=== PATIENT | female | born 1935 | race African-American/Black ===

== ENCOUNTER 2018-02-10 09:34 | Outpatient (CLI) | payer MEDICARE, OTHER | END 2018-02-10 09:35 | disposition home or self-care (01) | LOC: DTY/OP 09:34 | PROVIDERS: ATTEND Family Medicine | DX: E11.9 Type 2 diabetes mellitus without complications (principal) | CPT/HCPCS: 97802 ==

== ENCOUNTER 2018-02-18 11:49 | Outpatient (CLI) | payer MEDICARE, OTHER | END 2018-02-18 11:50 | disposition home or self-care (01) | LOC: BICMAMMO 11:49 | PROVIDERS: ATTEND Family Medicine | DX: Z12.31 Encounter for screening mammogram for malignant neoplasm of breast (principal) | CPT/HCPCS: 77063; 77067 ==

== ENCOUNTER 2018-05-11 09:29 | Emergency (ER) | payer MEDICARE, MEDICAID ==
--- NOTE | 2018-05-11 10:38 | RAD ---
CHEST PA AND LATERAL: HISTORY: Cough. Congestion. Headache. COMPARISON: 03/10/2015 FINDINGS: The heart size is normal. The aorta is tortuous. The lungs are well expanded without focal areas of consolidation, pneumothoraces, or pleural effusions. There are postop changes of a right rotator cu ff repair. Mild degenerative changes are present in the spine. IMPRESSION: No radiographic evidence of acute cardiopulmonary process. POS: OFF
[2018-05-11 11:53] LABS: #Basophils 0.1 thou/uL (0.0-0.2); #Eosinphils 0.1 thou/uL (0.0-0.7); #Lymphocytes 2.1 thou/uL (1.20-3.40); #Monocytes 0.9 thou/uL (0.11-0.59); #Neutrophils 4.2 thou/uL (1.40-6.50); %Basophils 0.9 % (0.0-1.0); %Eosinophils 1.8 % (0.0-10.0); %Lymphocytes 28.7 % (21.0-51.0); %Monocytes 11.7 % (0.0-10.0); %Neutrophils 56.9 % (42.0-75.0); Hemoglobin 13.2 g/dL (12.0-16.0); Mean Corpuscular HGB CONC 30.9 g/dL (32.0-36.0); Mean Corpuscular Hemoglobin 27.6 pg (27.0-31.0); Mean Corpuscular Volume 89.4 fL (78.0-98.0); Mean Platelet Volume 9.7 fL (7.4-10.4); Platelet Count 151 thou/uL (130-400); RBC Distribution Width 13.3 % (11.5-14.5); Red Blood Cell (RBC) Count 4.78 mill/uL (4.20-5.40); White Blood Cell (WBC) Count 7.4 thou/uL (4.8-10.8)
[2018-05-11 12:25] LABS: ALT (SGPT) 15 U/L (8-55); AST (SGOT) 17 U/L (5-34); Alkaline Phosphatase 84 U/L (40-150); Anion Gap 18 mmol/L (10-20); BUN (Urea Nitrogen) 12 mg/dL (9.8-20.1); Bilirubin, Total 0.4 mg/dL (0.2-1.2); Calc. Creatinine Clearance 0 mL/min (70-130); Calcium 9.7 mg/dL (7.8-10.44); Carbon Dioxide 19 mmol/L (23-31); Chloride 106 mmol/L (98-107); Estimated GFR-MDRD 48; Globulin 3.7 g/dL (2.4-3.5); Glucose 144 mg/dL (83-110); Potassium 4.5 mmol/L (3.5-5.1); Protein, Total 7.7 g/dL (6.0-8.3); Sodium 138 mmol/L (136-145)
[2018-05-11] MEDS ORDERED: predniSONE 20 MG TAB ONE (13:11)
== END 2018-05-11 13:28 | disposition home or self-care (01) ==
LOC: ERS 09:29
DX: J20.9 Acute bronchitis, unspecified (principal); E11.9 Type 2 diabetes mellitus without complications; Z79.4 Long term (current) use of insulin; I10 Essential (primary) hypertension; F17.210 Nicotine dependence, cigarettes, uncomplicated; Z79.899 Other long term (current) drug therapy
CPT/HCPCS: 36415; 71046; 80053; 83880; 84484; 85025; 87804; 93005; 94640; J7506; J7620

== ENCOUNTER 2018-05-13 19:59 | Inpatient (IN) | payer MEDICARE, MEDICAID ==
[2018-05-13] MEDS ORDERED: methylPREDNISolone Sod Succ/PF 125 MG/2 ML VIAL ONE (20:36)
--- NOTE | 2018-05-13 20:43 | RAD ---
CHEST ONE VIEW: 05/13/18 COMPARISON: 05/11/18. HISTORY: Cough. FINDINGS: Normal cardiac silhouette. There are diffuse interstitial opacities with areas of patchy alveolar inf iltration in the right perihilar region in the right lung base. No significant pleural fluid. No pneu mothorax or osseous abnormalities. IMPRESSION: Interstitial and alveolar infiltrates. Continued surveillance. POS: [facility]
[2018-05-13 20:46] LABS: #Monocytes 0.3 thou/uL (0.11-0.59); #Neutrophils 7.6 thou/uL (1.40-6.50); %Basophils 0.4 % (0.0-1.0); %Eosinophils 0.1 % (0.0-10.0); %Lymphocytes 11.1 % (21.0-51.0); %Monocytes 3.6 % (0.0-10.0); %Neutrophils 84.8 % (42.0-75.0); Hemoglobin 13.7 g/dL (12.0-16.0); Mean Corpuscular HGB CONC 30.6 g/dL (32.0-36.0); Mean Corpuscular Hemoglobin 27.8 pg (27.0-31.0); Mean Corpuscular Volume 90.7 fL (78.0-98.0); Mean Platelet Volume 10.9 fL (7.4-10.4); Platelet Count 193 thou/uL (130-400); RBC Distribution Width 13.3 % (11.5-14.5); Red Blood Cell (RBC) Count 4.94 mill/uL (4.20-5.40); White Blood Cell (WBC) Count 8.9 thou/uL (4.8-10.8)
[2018-05-13] MEDS ORDERED: cefTRIAXone\\ROCEPHIN 2 GM VIAL ONE (20:51)
[2018-05-13] MEDS ORDERED: Dextrose 5% in Water 1,000 ML IV PRN (23:07)
[2018-05-13] MEDS ORDERED: Dextrose 50% Abboject 50 ML SYRINGE SLOW IVP PRN (23:07)
[2018-05-13] MEDS ORDERED: Azithromycin 500 MG VIAL ONE (23:17)
[2018-05-13] MEDS ORDERED: Ondansetron PF 4 MG/2 ML Vial IVP PRN (23:18)
[2018-05-13] MEDS ORDERED: Calcium Carbonate 500 MG ChewTAB PO PRN (23:18)
[2018-05-13] MEDS ORDERED: Senokot S 8.6-50 MG TAB PO PRN (23:18)
[2018-05-13] MEDS ORDERED: Bisacodyl 5 MG TAB PO PRN (23:18)
[2018-05-13] MEDS ORDERED: Acetaminophen 325 MG TAB PO PRN (23:18)
[2018-05-13] MEDS ORDERED: Ondansetron ODT 4 MG TAB PO PRN (23:18)
[2018-05-13] MEDS ORDERED: Acetaminophen 650 MG Suppository PR PRN (23:18)
[2018-05-13] MEDS ORDERED: traMADol HCl 50 MG TAB PO PRN (23:25)
[2018-05-13 23:35] LABS: BUN (Urea Nitrogen) 24 mg/dL (9.8-20.1)
[2018-05-13 23:37] LABS: ALT (SGPT) 15 U/L (8-55)
[2018-05-13 23:41] VITALS: BMI 36.2
[2018-05-13 23:44] LABS: Albumin 4.1 g/dL (3.4-4.8)
[2018-05-13 23:46] LABS: Calcium 9.9 mg/dL (7.8-10.44); Chloride 100 mmol/L (98-107); Potassium 4.6 mmol/L (3.5-5.1); Sodium 135 mmol/L (136-145)
[2018-05-13 23:47] LABS: Globulin 3.6 g/dL (2.4-3.5); Protein, Total 7.7 g/dL (6.0-8.3)
[2018-05-13 23:48] LABS: Anion Gap 19 mmol/L (10-20); Carbon Dioxide 21 mmol/L (23-31)
[2018-05-13 23:49] LABS: Bilirubin, Total 0.2 mg/dL (0.2-1.2)
[2018-05-13 23:50] LABS: Alkaline Phosphatase 83 U/L (40-150); Calc. Creatinine Clearance 34 mL/min (70-130); Estimated GFR-MDRD 31
[2018-05-13 23:51] LABS: Glucose 630 mg/dL (83-110)
[2018-05-13 23:52] LABS: AST (SGOT) 13 U/L (5-34)
[2018-05-14 00:47] LABS: Lactic Acid 3.1 mmol/L (0.5-2.2)
[2018-05-14] MEDS: HumaLOG 300 UNITS/3 ML VIAL SC PRN ×5 (00:57→20:25)
[2018-05-14] MEDS: Sodium Chloride 0.9% 1,000 ML IV SCH ×2 (01:00→14:00)
--- NOTE | 2018-05-14 06:01 | HP ---
CHIEF COMPLAINT: Shortness of breath. HISTORY OF PRESENT ILLNESS: This is an 82-year-old female with past medical history of type 2 diabetes mellitus, hypertension, presenting to the hospital with shortness of breath. The patient stated that she has been getting worsening shortness of breath and she was recently in the hospital for the same shortness of breath. The patient states that she was diagnosed with bronchitis and was treated and was discharged 4 days ago. However, the patient stated that at home, her shortness of breath has worsened and she has been having dry cough. No sputum production, and the patient states that because she is having severe dry cough, she is having abdominal pain from the coughing episodes. The patient stated that she has a history of some sort of COPD because she has been smoking for a long time. The patient states that she uses inhaler at home. The patient has episodes of worsening shortness of breath. The patient tried using DuoNeb; however, it did not help. The patient endorses subjective fever, headache, one episode of vomiting. The patient denies any chills, chest pain, palpitations, abdominal pain, constipation, diarrhea, hematuria, hematochezia, melena. REVIEW OF SYSTEMS: Positive for fever, shortness of breath, headaches, and abdominal soreness, otherwise as documented in the HPI. All other systems were reviewed and are negative. PAST MEDICAL HISTORY: Type 2 diabetes mellitus, hypertension, asthma. FAMILY HISTORY: Reviewed and noncontributory. PAST SURGICAL HISTORY: The patient had a right rotator cuff repair and big toe nail removed. PSYCHIATRIC HISTORY: No previous psych history. SOCIAL HISTORY: The patient smokes cigarettes daily. She smokes half a pack per day. The patient denies any illicit drug use or alcohol use. ALLERGIES: NO KNOWN DRUG ALLERGIES. CURRENT MEDICATIONS: The patient takes, 1. Amlodipine. 2. Multaq. 3. Amitiza. 4. Metoprolol. 5. Crestor. 6. Losartan. 7. Victoza. 8. Levemir. 9. Aspirin. PHYSICAL EXAMINATION: VITAL SIGNS: The patient's blood pressure is 171/68, pulse of 80, respiratory rate of 17, temperature 98.8, oxygen saturation 96 on room air. GENERAL: The patient is alert and oriented x3, not in acute distress. The patient is sitting in bed. The patient is able to speak to me in full sentences. HEENT: Normocephalic, atraumatic. Pupils are equally round and reactive to light. Extraocular movements are intact. No scleral icterus. No conjunctival pallor. Mucous membranes are moist. NECK: Trachea is midline. Full range of motion. No JVD is appreciated. Supple. LUNGS: Clear to auscultation bilaterally. No wheezing, no rhonchi, no rales appreciated. CARDIAC: Positive S1 and S2. Regular rate and rhythm. No murmurs, no gallops, no rubs appreciated. ABDOMEN: Obese. Abdomen is soft, nontender, and nondistended. Positive bowel sounds. No peritoneal signs. EXTREMITIES: The patient has 5/5 upper extremity strength with good pulses bilaterally and 5/5 lower extremity strength with good pulses bilaterally. No edema noted. NEUROLOGIC: Cranial nerves II through XII grossly intact. No neurologic deficits noted. SKIN: Warm, dry, and intact. IMAGING DATA: Chest x-ray shows interstitial and alveolar infiltrates. LABORATORY DATA: WBC is 8.9, hemoglobin is 13.7, hematocrit is 34.8, platelet count is 193. Chemistry, sodium is 135, potassium is 4.6, chloride is 100, carbon dioxide of 21, anion gap of 19, BUN is 24, creatinine is 1.90, glucose is 630. Lactic acid is 5.4. ASSESSMENT AND PLAN: This is an 82-year-old female, being admitted for, 1. Bilateral interstitial infiltrates, likely due to community-acquired pneumonias. At this point, we have started the patient on azithromycin and Rocephin. We will continue the patient on antibiotics. We will give the patient DuoNeb treatments. The patient is currently not wheezing. Therefore, we are going to hold off steroids at this time, but if the patient starts to wheeze, we will start the patient on steroids. We will continue the patient on gentle hydration and we will give the patient p.r.n. medication for pain and fever. We will follow up on cultures in the a.m. We will also follow up on morning labs. 2. Diabetes mellitus type 2, uncontrolled at this time, the patient's glucose is 630. At this point, we will start the patient on insulin sliding scale. We will treat the patient with a sliding scale and we will continue to manage the patient's blood sugars with a sliding scale. We will try and increase sliding scale to moderate or aggressive depend on the patient's blood glucose. 3. Lactic acidosis, likely due to underlying sepsis. At this point, patient's lactic acid level was 5.4. The patient is being given gentle hydration. We will follow up on the lactic acid level and trend the patient's lactic acid. We will continue the patient on antibiotics. 4. Acute on chronic kidney injury, likely due to dehydration. The patient currently has BUN of 24 and creatinine is 1.90. The patient might be slightly dehydrated, so at this point, we are going to give the patient gentle hydration and we will continue to monitor the patient closely. We will consult Nephrology for further management. 5. History of hypertension. We will monitor the patient's blood pressure closely. We will continue the patient on her home medications and we will give p.r.n. blood pressure medications to better control the patient's blood pressures. 6. Deep vein thrombosis and gastrointestinal prophylaxis. Job ID: [id number]
[2018-05-14] MEDS ORDERED: Cilostazol 100 MG TAB PO SCH (07:30)
[2018-05-14 08:24] LABS: Albumin 3.6 g/dL (3.4-4.8); Anion Gap 15 mmol/L (10-20); BUN (Urea Nitrogen) 24 mg/dL (9.8-20.1); BUN/Creatinine Ratio 16.44; Calc. Creatinine Clearance 44 mL/min (70-130); Calcium 9.4 mg/dL (7.8-10.44); Carbon Dioxide 20 mmol/L (23-31); Chloride 104 mmol/L (98-107); Estimated GFR-MDRD 42; Glucose 388 mg/dL (83-110); Phosphorus 2.3 mg/dL (2.3-4.7); Potassium 5.6 mmol/L (3.5-5.1); Sodium 133 mmol/L (136-145)
[2018-05-14 08:25] LABS: Hemoglobin 12.7 g/dL (12.0-16.0); Mean Corpuscular HGB CONC 31.4 g/dL (32.0-36.0); Mean Corpuscular Hemoglobin 27.9 pg (27.0-31.0); Platelet Count 179 thou/uL (130-400); RBC Distribution Width 13.2 % (11.5-14.5); Red Blood Cell (RBC) Count 4.56 mill/uL (4.20-5.40); White Blood Cell (WBC) Count 8.8 thou/uL (4.8-10.8)
[2018-05-14] MEDS: Calcium Carbonate + Vit D 1 TAB PO SCH (08:53)
[2018-05-14] MEDS: Rosuvastatin 20 MG TAB PO SCH (08:54)
[2018-05-14] MEDS: Lubiprostone 24 MCG CAP PO SCH (08:54)
[2018-05-14] MEDS: Amlodipine 5 MG TAB PO SCH (08:54)
[2018-05-14] MEDS: Famotidine 20 MG TAB PO SCH (08:54)
[2018-05-14] MEDS: Dronedarone HCl 400 MG TAB PO SCH ×2 (08:55→16:20)
[2018-05-14] MEDS: Enoxaparin Sodium 40 MG/0.4 ML SYRINGE SC SCH (08:55)
[2018-05-14] MEDS: Famotidine/PF 20 mg/2ml Vial SLOW IVP SCH (08:56)
[2018-05-14] MEDS: Insulin Glargine 10 UNITS in Pre-Filled Syringe 1 EACH SC SCH ×2 (08:56→20:25)
[2018-05-14] MEDS ORDERED: Prevnar 13-Val Conj/PF 0.5 ML SYRINGE IM ONE (09:00)
[2018-05-14] MEDS ORDERED: Calcium Carbonate + Vit D 1 TAB PO SCH (09:00)
[2018-05-14] MEDS ORDERED: Famotidine 20 MG TAB PO SCH (09:00)
[2018-05-14] MEDS ORDERED: Amiodarone 200 MG TAB PO SCH (09:00)
[2018-05-14] MEDS ORDERED: Amlodipine 5 MG TAB PO SCH (09:00)
[2018-05-14] MEDS ORDERED: Famotidine/PF 20 mg/2ml Vial SLOW IVP SCH (09:00)
[2018-05-14] MEDS ORDERED: Non-Formulary Item 1 EACH (Insulin Detemir [Levemir] 10 UNIT) SQ SCH (09:00)
[2018-05-14 10:38] LABS: Burr Cells SLIGHT = 2-5 cells (100X) (0-1/hpf); Lymphocytes 10 % (21-51); MDiff Complete? YES; Monocytes 4 % (0-10); Neutrophil 86 % (42-75); PLT Morphology Comment Appears Adequate; Polychromasia SLIGHT = 2-3 cells (100X) (0-2/hpf)
--- NOTE | 2018-05-14 12:29 | CON ---
DATE OF CONSULTATION: RENAL MEDICINE HISTORY OF PRESENT ILLNESS: Ms. Barreto is an 82-year-old black female with known history of chronic renal failure from her diabetic nephropathy and was admitted due to complaints of mild shortness of breath. According to the patient, she was having productive cough in the last few days. She denies any associated fever or chills with this. She also has some nasal congestion. Chest x-ray shows increased lung markings versus a pneumonic infiltrate. She is being empirically treated with antibiotics. In addition, a gentle volume repletion was done and this has improved her renal function in the last 24 hours. REVIEW OF SYSTEMS: Positive for cough. Positive for mild shortness of breath. No chest pain. No syncopal episode. No fever or chills. Denies any productive cough. No nausea. No vomiting. Occasional wheezing. No diarrhea. No constipation. Decreased appetite. Decreased energy level. No dysuria. No hematochezia. No melena. No hematemesis. No abdominal pain. No headache. No syncopal episode. MEDICATIONS: 1. Tylenol 650 mg q.4 p.r.n. 2. DuoNeb q.4 p.r.n. 3. Norvasc 5 mg daily. 4. Aspirin 81 mg tablet once a day. 5. Azithromycin 250 mg IV q.24 hours. 6. Dulcolax p.r.n. 7. Tums 1000 mg q.4. 8. Ceftriaxone 2 g IV q.24 hours. 9. Multaq 400 mg p.o. b.i.d. 10. Lovenox 40 mg subcu daily. 11. Pepcid 20 mg IV daily. 12. Insulin sliding scale. 13. Amitiza 24 mcg daily. 14. Insulin glargine 10 units subcu b.i.d. 15. Metoprolol succinate 100 mg daily. 16. Zofran 4 mg q.6 p.r.n. 17. Crestor 20 mg at bedtime. 18. Zoloft 12.5 mg daily. 19. Normal saline at 70 mL/h. PAST MEDICAL HISTORY: Type 2 diabetes mellitus, chronic renal failure from diabetic nephropathy, hypertension, hyperlipidemia, GERD, DJD, COPD-restrictive lung disease, chronic low back pain, peripheral vascular disease, longstanding hypertension, and history of ? AFib. PAST SURGICAL HISTORY: Status post right shoulder joint surgeries - for rotator cuff injury, status post leg arteriogram, status post colonoscopy, status post stent placement - right femoral artery, and status post I and D of abscess of left breast. SOCIAL HISTORY: The patient is . Lives with her granddaughter. She lives in [place]. Three children. Retired cook. Smoked for 60 years, half a pack a day. Still with occasional smoking. Alcohol, none. Education 10th grade. No drug abuse. No blood transfusion. FAMILY HISTORY: No family history of ESRD. ALLERGIES: NONE. TRAUMA: None. IMMUNIZATION: Up-to-date. HOSPITALIZATIONS: Please see past medical history. PHYSICAL EXAMINATION: VITAL SIGNS: Blood pressure is 171/77, heart rate 75, respiratory rate 18, temperature 97.9, and pulse ox 92%. GENERAL: Awake, alert, supine, comfortable, obese, not in distress. SKIN: Adequate turgor. HEENT: She has a pinkish conjunctivae. Anicteric sclerae. NECK: No neck mass. No carotid bruits. No JVD. CHEST: No deformities. LUNGS: Decreased breath sounds. Occasional wheezing. HEART: Normal sinus rhythm. No murmur. No gallops. No rubs. ABDOMEN: Globular, soft, and nontender. No masses. EXTREMITIES: No edema. No deformities. LABORATORY DATA: Laboratories of May 14, 2018, white count 8.8 and hemoglobin 12.7. Sodium 133, potassium 5.6, chloride 104, carbon dioxide 20, BUN 24, creatinine 1.46, glucose 388, calcium 9.4, phosphorus 2.3, and albumin 3.6. ASSESSMENT AND PLAN: 1. Mild hyperkalemia. I will simply observe this. Place the patient on a renal diet. a. Home medications include the losartan. We will also discontinue losartan. 2. Hypertension. Continue current BP medications except for the losartan. 3. Acute kidney injury on top of her chronic renal failure. Her creatinine was initially noted at 1.9, but this has improved at 1.46 after discontinuation of losartan and a gentle volume repletion. She is now near baseline. For the moment, agree with current management. There is no indication for any dialytic intervention. 4. Chronic renal failure. This is secondary from her diabetic nephropathy. 5. ? Of pneumonia on empiric IV antibiotics. Overall, agree current management. Due to the renal function being near baseline, we will follow this patient up in the outpatient setting. Please recall if needed. We will be signing off. Job ID: [id number]
--- NOTE | 2018-05-14 13:13 | PDOC.PN ---
- Subjective Encounter Start Date: 05/14/18 Encounter Start Time: 09:00 Pt seen for followup re: pneumonia. Denies chest pain, shortness of breath. Cough+, sputum+. - Objective Resuscitation Status - Order Detail: 05/13/18 23:07 Resuscitation Status Routine Resuscitation Status: FULL: Full Resuscitation MAR Reviewed: Yes Vital Signs & Weight: Vital Signs (12 hours) Temp Pulse Resp BP BP Pulse Ox 05/14/18 11:00 97.9 F 75 18 172/79 H 92 L 05/14/18 09:11 92 L 05/14/18 08:54 75 171/77 H 05/14/18 07:00 97.9 F 75 18 171/77 H 92 L 05/14/18 03:18 98.5 F 67 18 152/71 H 92 L Weight Weight 198 lb 3 oz Result Diagrams: 05/15/18 06:09 05/15/18 06:09 Additional Labs: Accuchecks 05/14/18 05/14/18 04:50 00:19 POC Glucose 388 H 441 H labs reviewed by me Phys Exam - Physical Examination Constitutional: NAD HEENT: moist MMs, sclera anicteric, oral pharynx no lesions, 2+ tonsils Neck: no nodes, no JVD, supple, full ROM Respiratory: wheezing present Cardiovascular: RRR, no rub S1, s2 Gastrointestinal: soft, non-tender, no distention, positive bowel sounds Neurological: moves all 4 limbs Psychiatric: normal affect, A&O x 3 Dx/Plan (1) Community acquired bacterial pneumonia Code(s): J15.9 - UNSPECIFIED BACTERIAL PNEUMONIA Status: Acute Comment: continue IV antibiotics as below for probable streptococcal pneumonia (2) Hyperkalemia Code(s): E87.5 - HYPERKALEMIA Status: Acute Comment: recheck potassium level (3) Stage 3 chronic kidney disease due to diabetes mellitus Code(s): E11.22 - TYPE 2 DIABETES MELLITUS W DIABETIC CHRONIC KIDNEY DISEASE; N18.3 - CHRONIC KIDNEY DISEASE, STAGE 3 (MODERATE) Status: Chronic Comment: stable (4) HTN (hypertension) Code(s): I10 - ESSENTIAL (PRIMARY) HYPERTENSION Status: Chronic Comment: monitor vital signs, titrate antihypertensives as needed (5) DM2 (diabetes mellitus, type 2) Status: Chronic Comment: continue accuchecks, insulin sliding scale (6) Dyslipidemia Code(s): E78.5 - HYPERLIPIDEMIA, UNSPECIFIED Status: Chronic Comment: continue statin - Plan * . Review of Systems - Review of Systems Constitutional: negative: fever, chills, sweats, weakness, malaise Respiratory: Cough, Sputum. negative: Dry, Shortness of Breath, Hemoptysis, SOB with Excertion, Pleuritic Pain, Wheezing Cardiovascular: negative: chest pain, palpitations, orthopnea, paroxysmal nocturnal dyspnea, edema, light headedness Gastrointestinal: negative: Nausea, Vomiting, Abdominal Pain, Diarrhea, Constipation, Melena, Hematochezia Skin: negative: Rash, Lesions, Yahir, Bruising - Medications/Allergies Allergies/Adverse Reactions: Allergies Allergy/AdvReac Type Severity Reaction Status Date / Time No Known Drug Allergies Allergy Verified 05/13/18 23:53 Medications: Current Medications Acetaminophen (Tylenol) 650 mg PO Q4H PRN PRN Reason: Headache/Fever/Mild Pain (1-3) Acetaminophen (Tylenol) 650 mg OK Q4H PRN PRN Reason: Headache/Fever/Mild Pain (1-3) Albuterol/Ipratropium (Duoneb) 3 ml NEB [id number] PRN PRN Reason: SOB &/or Wheezing Amlodipine Besylate (Norvasc) 5 mg PO DAILY [facility] Last Admin: 05/14/18 08:54 Dose: 5 mg Aspirin (Aspirin Chewable) 81 mg PO DAILY [facility] Last Admin: 05/14/18 08:55 Dose: 81 mg Bisacodyl (Dulcolax) 10 mg PO DAILYPRN PRN PRN Reason: Constipation Calcium Carbonate (Tums) 1,000 mg PO Q4H PRN PRN Reason: Heartburn or Indigestion Calcium/Vitamin D (Caltrate 600 + Vit D) 1 tab PO DAILY [facility] Last Admin: 05/14/18 08:53 Dose: 1 tab Dextrose/Water (Dextrose 50%) 25 gm SLOW IVP PRN PRN PRN Reason: Hypoglycemia Dronedarone (Multaq) 400 mg PO BID-[facility] Last Admin: 05/14/18 08:55 Dose: 400 mg Enoxaparin Sodium (Lovenox) 40 mg SC 0900 [facility] Last Admin: 05/14/18 08:55 Dose: Not Given Famotidine (Pepcid) [facility] Last Admin: 05/14/18 08:56 Dose: Not Given Famotidine (Pepcid) 20 mg PO QAM [facility] Last Admin: 05/14/18 08:54 Dose: 20 mg Glucagon (Glucagon) 1 mg IM PRN PRN PRN Reason: Hypoglycemia Guaifenesin/Dextromethorphan (Robitussin Dm) 15 ml PO Q4H PRN PRN Reason: Cough Sodium Chloride (Normal Saline 0.9%) 1,000 mls @ 70 mls/hr IV .[id number] [facility] Last Admin: 05/14/18 01:00 Dose: 1,000 mls Dextrose/Water (D5w) 1,000 mls @ 0 mls/hr IV .Q0M PRN PRN Reason: Hypoglycemia Azithromycin 500 mg/ Sodium (Chloride) 250 mls @ 250 mls/hr IVPB Q24HR [place] Ceftriaxone Sodium 2 gm/ (Sodium Chloride) 100 mls @ 200 mls/hr IVPB Q24HR [facility] Insulin Glargine 10 units/ (Miscellaneous Medication) 0.1 mls @ 0 mls/hr SC BID [facility] Last Admin: 05/14/18 08:56 Dose: 0.1 mls Insulin Human Lispro (Humalog) 0 units SC .MILD SLIDING SCALE PRN PRN Reason: Mild Correctional Scale Last Admin: 05/14/18 12:17 Dose: 5 unit Insulin Human Lispro (Humalog) 0 units SC .BEDTIME SLIDING SC PRN PRN Reason: Bedtime Correctional Scale Last Admin: 05/14/18 00:57 Dose: 5 unit Lubiprostone (Amitiza) 24 mcg PO DAILY [facility] Last Admin: 05/14/18 08:54 Dose: 24 mcg Metoprolol Succinate (Toprol Xl) 100 mg PO DAILY [facility] Last Admin: 05/14/18 08:54 Dose: 100 mg Miscellaneous Medication (Pharmacy To Dose) 1 each IVPB PRN PRN PRN Reason: Pharmacy to dose Ondansetron HCl (Zofran Odt) 4 mg PO Q6H PRN PRN Reason: Nausea/Vomiting Ondansetron HCl (Zofran) 4 mg IVP Q6H PRN PRN Reason: Nausea/Vomiting Rosuvastatin Calcium (Crestor) 20 mg PO DAILY [facility] Last Admin: 05/14/18 08:54 Dose: 20 mg Senna/Docusate Sodium (Senokot S) 2 tab PO BIDPRN PRN PRN Reason: Constipation Sertraline HCl (Zoloft) 12.5 mg PO DAILY [facility] Last Admin: 05/14/18 08:54 Dose: 12.5 mg Sodium Chloride (Flush - Normal Saline) 10 ml IVF Q12HR [facility] Last Admin: 05/14/18 09:09 Dose: Not Given Sodium Chloride (Flush - Normal Saline) 10 ml IVF PRN PRN PRN Reason: Saline Flush Tramadol HCl (Ultram) 100 mg PO QIDPRN PRN PRN Reason: Pain
[2018-05-14] MEDS ORDERED: Albuterol Sulfate 2.5 mg/3 ml Neb NEB SCH (13:15)
[2018-05-14 18:20] LABS: Potassium 4.7 mmol/L (3.5-5.1)
[2018-05-14] MEDS ORDERED: cefTRIAXone\\ROCEPHIN 2 GM in Sodium Chloride 0.9% 100 ML IVPB SCH (21:00)
[2018-05-14] MEDS ORDERED: Azithromycin 500 MG in Sodium Chloride 0.9% 250 ML 250 ML IVPB SCH (22:00)
[2018-05-15] MEDS: Sodium Chloride 0.9% 1,000 ML IV SCH ×2 (02:25→20:31)
[2018-05-15 06:52] LABS: Anion Gap 12 mmol/L (10-20); BUN (Urea Nitrogen) 20 mg/dL (9.8-20.1); Calc. Creatinine Clearance 59 mL/min (70-130); Calcium 9.3 mg/dL (7.8-10.44); Carbon Dioxide 25 mmol/L (23-31); Chloride 106 mmol/L (98-107); Estimated GFR-MDRD 58; Glucose 165 mg/dL (83-110); Potassium 4.1 mmol/L (3.5-5.1); Sodium 139 mmol/L (136-145)
[2018-05-15 06:59] LABS: Hemoglobin 12.8 g/dL (12.0-16.0); Mean Corpuscular HGB CONC 31.7 g/dL (32.0-36.0); Mean Corpuscular Hemoglobin 27.7 pg (27.0-31.0); Mean Corpuscular Volume 87.5 fL (78.0-98.0); Mean Platelet Volume 9.6 fL (7.4-10.4); Platelet Count 189 thou/uL (130-400); RBC Distribution Width 13.2 % (11.5-14.5); Red Blood Cell (RBC) Count 4.62 mill/uL (4.20-5.40)
[2018-05-15 07:19] LABS: Band 1 % (5-11); Lymphocytes 34 % (21-51); MDiff Complete? YES; Monocytes 5 % (0-10); Neutrophil 60 % (42-75); PLT Morphology Comment Appears Adequate; RBC Morphology Normal; White Blood Cell (WBC) Count 12.5 thou/uL (4.8-10.8)
[2018-05-15] MEDS: Lubiprostone 24 MCG CAP PO SCH (08:25)
[2018-05-15] MEDS: Famotidine 20 MG TAB PO SCH (08:25)
[2018-05-15] MEDS: Dronedarone HCl 400 MG TAB PO SCH ×2 (08:25→17:05)
[2018-05-15] MEDS: Rosuvastatin 20 MG TAB PO SCH (08:25)
[2018-05-15] MEDS: Calcium Carbonate + Vit D 1 TAB PO SCH (08:26)
[2018-05-15] MEDS: Amlodipine 5 MG TAB PO SCH (08:26)
[2018-05-15] MEDS: Enoxaparin Sodium 40 MG/0.4 ML SYRINGE SC SCH (08:27)
[2018-05-15] MEDS: Famotidine/PF 20 mg/2ml Vial SLOW IVP SCH (08:27)
[2018-05-15] MEDS: Insulin Glargine 10 UNITS in Pre-Filled Syringe 1 EACH SC SCH ×2 (10:50→20:30)
[2018-05-15] MEDS: HumaLOG 300 UNITS/3 ML VIAL SC PRN ×2 (12:49→17:05)
[2018-05-15] MEDS: Guaifenesin DM 100-10/5 ML UDCUP PO PRN ×2 (12:52→17:09)
--- NOTE | 2018-05-15 13:58 | PDOC.PN ---
- Subjective Encounter Start Date: 05/15/18 Encounter Start Time: 08:20 Pt seen for followup re: acute hypoxic respiratory failure. c/o generalized weakness. - Objective Resuscitation Status - Order Detail: 05/13/18 23:07 Resuscitation Status Routine Resuscitation Status: FULL: Full Resuscitation MAR Reviewed: Yes Vital Signs & Weight: Vital Signs (12 hours) Temp Pulse Resp BP BP Pulse Ox 05/15/18 11:38 98.6 F 63 19 127/68 99 05/15/18 10:40 66 18 91 L 05/15/18 08:34 94 L 05/15/18 08:31 72 94 L 05/15/18 08:26 66 169/87 H 05/15/18 07:50 98.6 F 67 18 169/87 H 91 L Weight Weight 199 lb 1.6 oz I&O: 05/14/18 05/15/18 05/16/18 06:59 06:59 06:59 Intake Total 2970 Balance 2970 Result Diagrams: 05/15/18 06:09 05/15/18 06:09 Additional Labs: Accuchecks 05/15/18 05/15/18 05/14/18 11:38 04:32 20:12 POC Glucose 291 H 148 H 319 H 05/14/18 05/14/18 17:05 11:53 POC Glucose 378 H 316 H labs reviewed by me Phys Exam - Physical Examination Constitutional: NAD HEENT: moist MMs Neck: supple Respiratory: wheezing present Cardiovascular: RRR Gastrointestinal: soft Neurological: non-focal, moves all 4 limbs Psychiatric: normal affect Dx/Plan (1) Community acquired bacterial pneumonia Code(s): J15.9 - UNSPECIFIED BACTERIAL PNEUMONIA Status: Acute Comment: pt improving, switch to cefdinir (2) Physical deconditioning Code(s): R53.81 - OTHER MALAISE Status: Acute Comment: ambulate patient (3) Stage 3 chronic kidney disease due to diabetes mellitus Code(s): E11.22 - TYPE 2 DIABETES MELLITUS W DIABETIC CHRONIC KIDNEY DISEASE; N18.3 - CHRONIC KIDNEY DISEASE, STAGE 3 (MODERATE) Status: Chronic Comment: stable (4) HTN (hypertension) Code(s): I10 - ESSENTIAL (PRIMARY) HYPERTENSION Status: Chronic Comment: controlled (5) DM2 (diabetes mellitus, type 2) Status: Chronic Comment: continue accuchecks, insulin sliding scale (6) Dyslipidemia Code(s): E78.5 - HYPERLIPIDEMIA, UNSPECIFIED Status: Chronic Comment: on statin (7) Hyperkalemia Code(s): E87.5 - HYPERKALEMIA Status: Resolved - Plan * . Review of Systems - Review of Systems Constitutional: weakness Respiratory: Cough, Sputum. negative: Dry, Shortness of Breath, Hemoptysis, SOB with Excertion, Pleuritic Pain, Wheezing Cardiovascular: negative: chest pain, palpitations, orthopnea, paroxysmal nocturnal dyspnea, edema, light headedness - Medications/Allergies Allergies/Adverse Reactions: Allergies Allergy/AdvReac Type Severity Reaction Status Date / Time No Known Drug Allergies Allergy Verified 05/13/18 23:53 Medications: Current Medications Acetaminophen (Tylenol) 650 mg PO Q4H PRN PRN Reason: Headache/Fever/Mild Pain (1-3) Acetaminophen (Tylenol) 650 mg SC Q4H PRN PRN Reason: Headache/Fever/Mild Pain (1-3) Albuterol/Ipratropium (Duoneb) 3 ml NEB [id number] PRN PRN Reason: SOB &/or Wheezing Last Admin: 05/15/18 10:40 Dose: 3 ml Amlodipine Besylate (Norvasc) 5 mg PO DAILY [facility] Last Admin: 05/15/18 08:26 Dose: 5 mg Aspirin (Aspirin Chewable) 81 mg PO DAILY [facility] Last Admin: 05/15/18 08:25 Dose: 81 mg Bisacodyl (Dulcolax) 10 mg PO DAILYPRN PRN PRN Reason: Constipation Calcium Carbonate (Tums) 1,000 mg PO Q4H PRN PRN Reason: Heartburn or Indigestion Calcium/Vitamin D (Caltrate 600 + Vit D) 1 tab PO DAILY [facility] Last Admin: 05/15/18 08:26 Dose: 1 tab Cefdinir (Omnicef) 300 mg PO BID [facility] Dextrose/Water (Dextrose 50%) 25 gm SLOW IVP PRN PRN PRN Reason: Hypoglycemia Dronedarone (Multaq) 400 mg PO BID-[facility] Last Admin: 05/15/18 08:25 Dose: 400 mg Enoxaparin Sodium (Lovenox) 40 mg SC 0900 [facility] Last Admin: 05/15/18 08:27 Dose: Not Given Famotidine (Pepcid) 20 mg SLOW IVP QAM [facility] Last Admin: 05/15/18 08:27 Dose: Not Given Famotidine (Pepcid) 20 mg PO QAM [facility] Last Admin: 05/15/18 08:25 Dose: 20 mg Glucagon (Glucagon) 1 mg IM PRN PRN PRN Reason: Hypoglycemia Guaifenesin/Dextromethorphan (Robitussin Dm) 15 ml PO Q4H PRN PRN Reason: Cough Last Admin: 05/15/18 12:52 Dose: 15 ml Sodium Chloride (Normal Saline 0.9%) 1,000 mls @ 70 mls/hr IV .[id number] [facility] Last Admin: 05/15/18 02:25 Dose: 1,000 mls Dextrose/Water (D5w) 1,000 mls @ 0 mls/hr IV .Q0M PRN PRN Reason: Hypoglycemia Insulin Glargine 10 units/ (Miscellaneous Medication) 0.1 mls @ 0 mls/hr SC BID [facility] Last Admin: 05/15/18 10:50 Dose: 0.1 mls Insulin Human Lispro (Humalog) 0 units SC .MILD SLIDING SCALE PRN PRN Reason: Mild Correctional Scale Last Admin: 05/15/18 12:49 Dose: 4 unit Insulin Human Lispro (Humalog) 0 units SC .BEDTIME SLIDING SC PRN PRN Reason: Bedtime Correctional Scale Last Admin: 05/14/18 20:25 Dose: 4 unit Lubiprostone (Amitiza) 24 mcg PO DAILY [facility] Last Admin: 05/15/18 08:25 Dose: 24 mcg Metoprolol Succinate (Toprol Xl) 100 mg PO DAILY [facility] Last Admin: 05/15/18 08:25 Dose: 100 mg Miscellaneous Medication (Pharmacy To Dose) 1 each IVPB PRN PRN PRN Reason: Pharmacy to dose Ondansetron HCl (Zofran Odt) 4 mg PO Q6H PRN PRN Reason: Nausea/Vomiting Ondansetron HCl (Zofran) 4 mg IVP Q6H PRN PRN Reason: Nausea/Vomiting Rosuvastatin Calcium (Crestor) 20 mg PO DAILY [facility] Last Admin: 05/15/18 08:25 Dose: 20 mg Senna/Docusate Sodium (Senokot S) 2 tab PO BIDPRN PRN PRN Reason: Constipation Sertraline HCl (Zoloft) 12.5 mg PO DAILY [facility] Last Admin: 05/15/18 08:25 Dose: 12.5 mg Sodium Chloride (Flush - Normal Saline) 10 ml IVF Q12HR [facility] Last Admin: 05/15/18 08:27 Dose: Not Given Sodium Chloride (Flush - Normal Saline) 10 ml IVF PRN PRN PRN Reason: Saline Flush Tramadol HCl (Ultram) 100 mg PO QIDPRN PRN PRN Reason: Pain
[2018-05-15] MEDS: Cefdinir 300 MG CAP PO SCH (20:30)
[2018-05-16] MEDS ORDERED: Furosemide 40 MG/4 ML VIAL SLOW IVP SCH (06:15)
[2018-05-16] MEDS: Famotidine 20 MG TAB PO SCH (07:51)
[2018-05-16] MEDS: Dronedarone HCl 400 MG TAB PO SCH ×2 (07:51→16:20)
[2018-05-16] MEDS: Amlodipine 5 MG TAB PO SCH (07:51)
[2018-05-16] MEDS: Lubiprostone 24 MCG CAP PO SCH (07:52)
[2018-05-16] MEDS: Cefdinir 300 MG CAP PO SCH ×2 (07:52→20:19)
[2018-05-16] MEDS: Rosuvastatin 20 MG TAB PO SCH (07:52)
[2018-05-16] MEDS: Calcium Carbonate + Vit D 1 TAB PO SCH (07:52)
[2018-05-16] MEDS: Enoxaparin Sodium 40 MG/0.4 ML SYRINGE SC SCH (07:53)
[2018-05-16] MEDS: Famotidine/PF 20 mg/2ml Vial SLOW IVP SCH (07:53)
[2018-05-16] MEDS: Insulin Glargine 10 UNITS in Pre-Filled Syringe 1 EACH SC SCH ×2 (07:57→20:20)
--- NOTE | 2018-05-16 10:27 | RAD ---
PORTABLE CHEST: DATE: 05/16/2018. PROVIDED CLINICAL HISTORY: Shortness of breath. FINDINGS: Comparison 05/13/2018. Cardiac and mediastinal silhouette is unchanged in appearance. Bilateral per ihilar airspace disease is redemonstrated appearing similar to prior. Vascular calcification is note d. No pleural fluid or pneumothorax apparent. IMPRESSION: Persistent perihilar airspace disease. POS: [facility]
[2018-05-16 10:33] LABS: #Eosinphils 0.1 thou/uL (0.0-0.7); #Lymphocytes 2.6 thou/uL (1.20-3.40); #Monocytes 0.9 thou/uL (0.11-0.59); #Neutrophils 4.4 thou/uL (1.40-6.50); %Basophils 0.4 % (0.0-1.0); %Eosinophils 1.3 % (0.0-10.0); %Lymphocytes 32.8 % (21.0-51.0); %Monocytes 11.1 % (0.0-10.0); %Neutrophils 54.4 % (42.0-75.0); Hemoglobin 13.9 g/dL (12.0-16.0); Mean Corpuscular HGB CONC 31.8 g/dL (32.0-36.0); Mean Corpuscular Hemoglobin 27.7 pg (27.0-31.0); Mean Corpuscular Volume 87.3 fL (78.0-98.0); Mean Platelet Volume 9.3 fL (7.4-10.4); Platelet Count 192 thou/uL (130-400); RBC Distribution Width 13.2 % (11.5-14.5); Red Blood Cell (RBC) Count 5.01 mill/uL (4.20-5.40)
[2018-05-16 10:52] LABS: Anion Gap 14 mmol/L (10-20); BUN (Urea Nitrogen) 18 mg/dL (9.8-20.1); Calc. Creatinine Clearance 43 mL/min (70-130); Calcium 9.5 mg/dL (7.8-10.44); Carbon Dioxide 23 mmol/L (23-31); Chloride 106 mmol/L (98-107); Estimated GFR-MDRD 40; Glucose 236 mg/dL (83-110); Potassium 3.9 mmol/L (3.5-5.1); Sodium 139 mmol/L (136-145)
[2018-05-16] MEDS: HumaLOG 300 UNITS/3 ML VIAL SC PRN ×2 (11:57→17:13)
--- NOTE | 2018-05-16 17:18 | PQF ---
CLINICAL DOCUMENTATION IMPROVEMENT CLARIFICATION FORM: ICD-10 Updated PLEASE DO AN ADDENDUM TO THE PROGRESS NOTE WITH ANY DOCUMENTATION UPDATES OR ADDITIONS AND CARRY THROUGH TO DC SUMMARY. THANK YOU. DATE: 05/16/18 ATTN: Dr. Gracia Please exercise your independent, professional judgment in responding to the clarification form. Clinical indicators are provided on the bottom of this form for your review Please check appropriate box(s) to clarify if the following diagnosis has been ruled in or ruled out: SEPSIS [ ] Ruled in diagnosis [ ] Continue to treat [ ] Resolved [ X ] Ruled out diagnosis [ ] Cannot rule out diagnosis [ ] Other diagnosis [ ] Unable to determine In addition, please specify: Present on Admission (POA): [ ] Yes [ ] No [ ] Unable to determine For continuity of documentation, please document condition throughout progress notes and discharge summary. Thank You. CLINICAL INDICATORS - SIGNS / SYMPTOMS / LABS ER RECORD: Reports fever BP 176/68, Pulse 80, Resp 17 CXR findings consistent with pneumonia. DX: Pneumonia. Additional: Sepsis H&P 05/14: Bilateral interstitial infiltrates, likely d/t community acquired pneumonias. DM 2 uncontrolled, pt's glucose is 630. Lactic acidosis, likely due to underlying sepsis. Lactic acid level was 5.4 Acute on chronic kidney injury, likely due to dehydration. RISKS: H&P: 82 yrs old. Recently in the hospital for bronchitis and was dc'd 4 days ago. Hx of DM 2, HTN. Asthma. TREATMENTS Order 05/14- 05/15: IV Zithromax 500 mg IV Q 24 ht Order 05/14- 05/15: IV Rocephin Q 24 hr Order 05/15: Omnicef 300mg po BID Thank you, Claribel (This form is maintained as a part of the permanent medical record) 2014 [employer] All Rights Reserved Claribel Sharpe RN, BSN [email or web address] Office: [phone] [facility]
--- NOTE | 2018-05-16 17:53 | PDOC.PN ---
- Subjective Encounter Start Date: 05/16/18 Encounter Start Time: 09:40 Pt seen for followup re: pneumonia. c/o cough, sputum, generalized weakness. - Objective Resuscitation Status - Order Detail: 05/13/18 23:07 Resuscitation Status Routine Resuscitation Status: FULL: Full Resuscitation MAR Reviewed: Yes Vital Signs & Weight: Vital Signs (12 hours) Temp Pulse Resp BP BP Pulse Ox 05/16/18 08:00 92 L 05/16/18 07:51 61 150/78 H 05/16/18 07:44 98.5 F 61 18 150/78 H 92 L Weight Weight 199 lb 1.6 oz I&O: 05/15/18 05/16/18 05/17/18 06:59 06:59 06:59 Intake Total 2970 1220 Balance 2970 1220 Result Diagrams: 05/16/18 10:10 05/16/18 10:10 Additional Labs: Accuchecks 05/16/18 05/16/18 05/16/18 16:39 11:34 05:01 POC Glucose 260 H 267 H 88 05/15/18 19:29 POC Glucose 155 H labs reviewed by me Phys Exam - Physical Examination Obese HEENT: moist MMs Neck: supple Respiratory: clear to auscultation bilateral Cardiovascular: RRR Gastrointestinal: soft Neurological: moves all 4 limbs Psychiatric: normal affect Dx/Plan (1) Community acquired bacterial pneumonia Code(s): J15.9 - UNSPECIFIED BACTERIAL PNEUMONIA Status: Acute Comment: continue cefdinir (2) Physical deconditioning Code(s): R53.81 - OTHER MALAISE Status: Acute Comment: walking program to ambulate patient (3) Stage 3 chronic kidney disease due to diabetes mellitus Code(s): E11.22 - TYPE 2 DIABETES MELLITUS W DIABETIC CHRONIC KIDNEY DISEASE; N18.3 - CHRONIC KIDNEY DISEASE, STAGE 3 (MODERATE) Status: Chronic Comment: stable (4) HTN (hypertension) Code(s): I10 - ESSENTIAL (PRIMARY) HYPERTENSION Status: Chronic Comment: controlled (5) DM2 (diabetes mellitus, type 2) Status: Chronic Comment: on accuchecks, insulin sliding scale (6) Dyslipidemia Code(s): E78.5 - HYPERLIPIDEMIA, UNSPECIFIED Status: Chronic Comment: on statin (7) Hyperkalemia Code(s): E87.5 - HYPERKALEMIA Status: Resolved - Plan * . Review of Systems - Review of Systems Constitutional: weakness Respiratory: Cough, Sputum. negative: Dry, Shortness of Breath, Hemoptysis, SOB with Excertion, Pleuritic Pain, Wheezing Cardiovascular: negative: chest pain, palpitations, orthopnea, paroxysmal nocturnal dyspnea, edema, light headedness - Medications/Allergies Allergies/Adverse Reactions: Allergies Allergy/AdvReac Type Severity Reaction Status Date / Time No Known Drug Allergies Allergy Verified 05/13/18 23:53 Medications: Current Medications Acetaminophen (Tylenol) 650 mg PO Q4H PRN PRN Reason: Headache/Fever/Mild Pain (1-3) Acetaminophen (Tylenol) 650 mg MO Q4H PRN PRN Reason: Headache/Fever/Mild Pain (1-3) Albuterol/Ipratropium (Duoneb) 3 ml NEB [id number] PRN PRN Reason: SOB &/or Wheezing Last Admin: 05/15/18 22:41 Dose: 3 ml Amlodipine Besylate (Norvasc) 5 mg PO DAILY [facility] Last Admin: 05/16/18 07:51 Dose: 5 mg Aspirin (Aspirin Chewable) 81 mg PO DAILY [facility] Last Admin: 05/16/18 07:52 Dose: 81 mg Bisacodyl (Dulcolax) 10 mg PO DAILYPRN PRN PRN Reason: Constipation Calcium Carbonate (Tums) 1,000 mg PO Q4H PRN PRN Reason: Heartburn or Indigestion Calcium/Vitamin D (Caltrate 600 + Vit D) 1 tab PO DAILY [facility] Last Admin: 05/16/18 07:52 Dose: 1 tab Cefdinir (Omnicef) 300 mg PO BID [facility] Last Admin: 05/16/18 07:52 Dose: 300 mg Dextrose/Water (Dextrose 50%) 25 gm SLOW IVP PRN PRN PRN Reason: Hypoglycemia Dronedarone (Multaq) 400 mg PO BID-[facility] Last Admin: 05/16/18 16:20 Dose: 400 mg Famotidine (Pepcid) 20 mg SLOW IVP QAM [facility] Last Admin: 05/16/18 07:53 Dose: Not Given Famotidine (Pepcid) 20 mg PO QAM [facility] Last Admin: 05/16/18 07:51 Dose: 20 mg Glucagon (Glucagon) 1 mg IM PRN PRN PRN Reason: Hypoglycemia Guaifenesin/Dextromethorphan (Robitussin Dm) 15 ml PO Q4H PRN PRN Reason: Cough Last Admin: 05/15/18 17:09 Dose: 15 ml Dextrose/Water (D5w) 1,000 mls @ 0 mls/hr IV .Q0M PRN PRN Reason: Hypoglycemia Insulin Glargine 10 units/ (Miscellaneous Medication) 0.1 mls @ 0 mls/hr SC BID [facility] Last Admin: 05/16/18 07:57 Dose: 0.1 mls Insulin Human Lispro (Humalog) 0 units SC .MILD SLIDING SCALE PRN PRN Reason: Mild Correctional Scale Last Admin: 05/16/18 17:13 Dose: 4 unit Insulin Human Lispro (Humalog) 0 units SC .BEDTIME SLIDING SC PRN PRN Reason: Bedtime Correctional Scale Last Admin: 05/14/18 20:25 Dose: 4 unit Lubiprostone (Amitiza) 24 mcg PO DAILY [facility] Last Admin: 05/16/18 07:52 Dose: 24 mcg Metoprolol Succinate (Toprol Xl) 100 mg PO DAILY [facility] Last Admin: 05/16/18 07:52 Dose: 100 mg Miscellaneous Medication (Pharmacy To Dose) 1 each IVPB PRN PRN PRN Reason: Pharmacy to dose Ondansetron HCl (Zofran Odt) 4 mg PO Q6H PRN PRN Reason: Nausea/Vomiting Ondansetron HCl (Zofran) 4 mg IVP Q6H PRN PRN Reason: Nausea/Vomiting Rosuvastatin Calcium (Crestor) 20 mg PO DAILY [facility] Last Admin: 05/16/18 07:52 Dose: 20 mg Senna/Docusate Sodium (Senokot S) 2 tab PO BIDPRN PRN PRN Reason: Constipation Sertraline HCl (Zoloft) 12.5 mg PO DAILY [facility] Last Admin: 05/16/18 07:51 Dose: 12.5 mg Sodium Chloride (Flush - Normal Saline) 10 ml IVF Q12HR [facility] Last Admin: 05/16/18 07:53 Dose: 10 ml Sodium Chloride (Flush - Normal Saline) 10 ml IVF PRN PRN PRN Reason: Saline Flush Tramadol HCl (Ultram) 100 mg PO QIDPRN PRN PRN Reason: Pain
[2018-05-17] MEDS: Lubiprostone 24 MCG CAP PO SCH (07:47)
[2018-05-17] MEDS: Famotidine 20 MG TAB PO SCH (07:47)
[2018-05-17] MEDS: Dronedarone HCl 400 MG TAB PO SCH ×2 (07:47→17:21)
[2018-05-17] MEDS: Rosuvastatin 20 MG TAB PO SCH (07:48)
[2018-05-17] MEDS: Amlodipine 5 MG TAB PO SCH ×2 (07:48→10:45)
[2018-05-17] MEDS: Cefdinir 300 MG CAP PO SCH ×2 (07:48→20:13)
[2018-05-17] MEDS: Calcium Carbonate + Vit D 1 TAB PO SCH (07:48)
[2018-05-17] MEDS: Famotidine/PF 20 mg/2ml Vial SLOW IVP SCH (07:49)
[2018-05-17] MEDS: Insulin Glargine 10 UNITS in Pre-Filled Syringe 1 EACH SC SCH ×2 (07:59→20:13)
[2018-05-17 08:46] LABS: Hemoglobin 13.8 g/dL (12.0-16.0); Mean Corpuscular HGB CONC 33.1 g/dL (32.0-36.0); Mean Corpuscular Hemoglobin 28.8 pg (27.0-31.0); Mean Corpuscular Volume 86.9 fL (78.0-98.0); Mean Platelet Volume 9.7 fL (7.4-10.4); Platelet Count 190 thou/uL (130-400); RBC Distribution Width 13.1 % (11.5-14.5); Red Blood Cell (RBC) Count 4.79 mill/uL (4.20-5.40); White Blood Cell (WBC) Count 9.5 thou/uL (4.8-10.8)
[2018-05-17 09:05] LABS: Anion Gap 15 mmol/L (10-20); BUN (Urea Nitrogen) 21 mg/dL (9.8-20.1); Calc. Creatinine Clearance 42 mL/min (70-130); Calcium 9.4 mg/dL (7.8-10.44); Carbon Dioxide 24 mmol/L (23-31); Chloride 105 mmol/L (98-107); Estimated GFR-MDRD 40; Glucose 191 mg/dL (83-110); Potassium 3.8 mmol/L (3.5-5.1); Sodium 140 mmol/L (136-145)
[2018-05-17] MEDS ORDERED: Meclizine HCl 25 MG TAB PO SCH (11:00)
[2018-05-17] MEDS ORDERED: Meclizine HCl 25 MG TAB PO PRN (11:00)
[2018-05-17 11:41] LABS: Eosinophils 4 % (0-10); Lymphocytes 24 % (21-51); MDiff Complete? YES; Monocytes 9 % (0-10); Neutrophil 50 % (42-75); PLT Morphology Comment Appears Adequate; Reactive Lymphocytes 13 % (0-10)
[2018-05-17] MEDS: HumaLOG 300 UNITS/3 ML VIAL SC PRN ×3 (12:08→20:14)
[2018-05-17] MEDS: Meclizine HCl 12.5 MG TAB PO SCH ×2 (14:09→20:13)
--- NOTE | 2018-05-17 15:58 | PDOC.PN ---
- Subjective Encounter Start Date: 05/17/18 Encounter Start Time: 09:00 Pt seen for followup re; vertigo. Reports on and off vertigo. No headache, fevers or chills. - Objective Resuscitation Status - Order Detail: 05/13/18 23:07 Resuscitation Status Routine Resuscitation Status: FULL: Full Resuscitation MAR Reviewed: Yes Vital Signs & Weight: Vital Signs (12 hours) Temp Pulse Resp BP Pulse Ox 05/17/18 09:48 111/68 05/17/18 08:00 95 05/17/18 07:53 97.9 F 72 16 108/67 95 Weight Weight 196 lb 8 oz I&O: 05/16/18 05/17/18 05/18/18 06:59 06:59 06:59 Intake Total 1220 1440 Balance 1220 1440 Result Diagrams: 05/17/18 08:11 05/17/18 08:11 Additional Labs: Accuchecks 05/17/18 05/17/18 05/16/18 11:46 05:18 20:11 POC Glucose 282 H 173 H 109 05/16/18 16:39 POC Glucose 260 H Labs reviewed byme Phys Exam - Physical Examination Obese HEENT: moist MMs, TM's clear Neck: supple Respiratory: clear to auscultation bilateral Cardiovascular: RRR Gastrointestinal: soft Musculoskeletal: no edema Neurological: non-focal, normal sensation, moves all 4 limbs Psychiatric: normal affect Dx/Plan (1) Vertigo Code(s): R42 - DIZZINESS AND GIDDINESS Status: Acute Comment: probable peripheral vertigo, trial meclizine (2) Community acquired bacterial pneumonia Code(s): J15.9 - UNSPECIFIED BACTERIAL PNEUMONIA Status: Acute Comment: on cefdinir (3) Physical deconditioning Code(s): R53.81 - OTHER MALAISE Status: Acute Comment: ambulate patient (4) Stage 3 chronic kidney disease due to diabetes mellitus Code(s): E11.22 - TYPE 2 DIABETES MELLITUS W DIABETIC CHRONIC KIDNEY DISEASE; N18.3 - CHRONIC KIDNEY DISEASE, STAGE 3 (MODERATE) Status: Chronic Comment: stable (5) HTN (hypertension) Code(s): I10 - ESSENTIAL (PRIMARY) HYPERTENSION Status: Chronic Comment: controlled (6) DM2 (diabetes mellitus, type 2) Status: Chronic Comment: on accuchecks, insulin sliding scale (7) Dyslipidemia Code(s): E78.5 - HYPERLIPIDEMIA, UNSPECIFIED Status: Chronic Comment: on statin (8) Hyperkalemia Code(s): E87.5 - HYPERKALEMIA Status: Resolved - Plan * . Review of Systems - Review of Systems Cardiovascular: negative: chest pain, palpitations, orthopnea, paroxysmal nocturnal dyspnea, edema, light headedness Gastrointestinal: negative: Nausea, Vomiting, Abdominal Pain, Diarrhea, Constipation, Melena, Hematochezia Neurological: Other (vertigo) - Medications/Allergies Allergies/Adverse Reactions: Allergies Allergy/AdvReac Type Severity Reaction Status Date / Time No Known Drug Allergies Allergy Verified 05/13/18 23:53 Medications: Current Medications Acetaminophen (Tylenol) 650 mg PO Q4H PRN PRN Reason: Headache/Fever/Mild Pain (1-3) Acetaminophen (Tylenol) 650 mg [place] Q4H PRN PRN Reason: Headache/Fever/Mild Pain (1-3) Albuterol/Ipratropium (Duoneb) 3 ml NEB [id number] PRN PRN Reason: SOB &/or Wheezing Last Admin: 05/15/18 22:41 Dose: 3 ml Amlodipine Besylate (Norvasc) 5 mg PO DAILY [facility] Last Admin: 05/17/18 10:45 Dose: Not Given Aspirin (Aspirin Chewable) 81 mg PO DAILY [facility] Last Admin: 05/17/18 07:48 Dose: 81 mg Bisacodyl (Dulcolax) 10 mg PO DAILYPRN PRN PRN Reason: Constipation Calcium Carbonate (Tums) 1,000 mg PO Q4H PRN PRN Reason: Heartburn or Indigestion Calcium/Vitamin D (Caltrate 600 + Vit D) 1 tab PO DAILY [facility] Last Admin: 05/17/18 07:48 Dose: 1 tab Cefdinir (Omnicef) 300 mg PO BID [facility] Last Admin: 05/17/18 07:48 Dose: 300 mg Dextrose/Water (Dextrose 50%) 25 gm SLOW IVP PRN PRN PRN Reason: Hypoglycemia Dronedarone (Multaq) 400 mg PO BID-[facility] Last Admin: 05/17/18 07:47 Dose: 400 mg Famotidine (Pepcid) 20 mg SLOW IVP QAM [facility] Last Admin: 05/17/18 07:49 Dose: Not Given Famotidine (Pepcid) 20 mg PO QAM [facility] Last Admin: 05/17/18 07:47 Dose: 20 mg Glucagon (Glucagon) 1 mg IM PRN PRN PRN Reason: Hypoglycemia Guaifenesin/Dextromethorphan (Robitussin Dm) 15 ml PO Q4H PRN PRN Reason: Cough Last Admin: 05/15/18 17:09 Dose: 15 ml Dextrose/Water (D5w) 1,000 mls @ 0 mls/hr IV .Q0M PRN PRN Reason: Hypoglycemia Insulin Glargine 10 units/ (Miscellaneous Medication) 0.1 mls @ 0 mls/hr SC BID [facility] Last Admin: 05/17/18 07:59 Dose: 0.1 mls Insulin Human Lispro (Humalog) 0 units SC .MILD SLIDING SCALE PRN PRN Reason: Mild Correctional Scale Last Admin: 05/17/18 12:08 Dose: 4 unit Insulin Human Lispro (Humalog) 0 units SC .BEDTIME SLIDING SC PRN PRN Reason: Bedtime Correctional Scale Last Admin: 05/14/18 20:25 Dose: 4 unit Lubiprostone (Amitiza) 24 mcg PO DAILY [facility] Last Admin: 05/17/18 07:47 Dose: 24 mcg Meclizine HCl (Antivert) 12.5 mg PO TID [facility] Last Admin: 05/17/18 14:09 Dose: 12.5 mg Metoprolol Succinate (Toprol Xl) 100 mg PO DAILY [facility] Last Admin: 05/17/18 07:48 Dose: 100 mg Miscellaneous Medication (Pharmacy To Dose) 1 each IVPB PRN PRN PRN Reason: Pharmacy to dose Ondansetron HCl (Zofran Odt) 4 mg PO Q6H PRN PRN Reason: Nausea/Vomiting Ondansetron HCl (Zofran) 4 mg IVP Q6H PRN PRN Reason: Nausea/Vomiting Rosuvastatin Calcium (Crestor) 20 mg PO DAILY [facility] Last Admin: 05/17/18 07:48 Dose: 20 mg Senna/Docusate Sodium (Senokot S) 2 tab PO BIDPRN PRN PRN Reason: Constipation Sertraline HCl (Zoloft) 12.5 mg PO DAILY [facility] Last Admin: 05/17/18 07:48 Dose: 12.5 mg Sodium Chloride (Flush - Normal Saline) 10 ml IVF Q12HR [facility] Last Admin: 05/17/18 07:49 Dose: 10 ml Sodium Chloride (Flush - Normal Saline) 10 ml IVF PRN PRN PRN Reason: Saline Flush Tramadol HCl (Ultram) 100 mg PO QIDPRN PRN PRN Reason: Pain
[2018-05-18 07:18] LABS: Hemoglobin 12.5 g/dL (12.0-16.0); Mean Corpuscular HGB CONC 32.4 g/dL (32.0-36.0); Mean Corpuscular Hemoglobin 28.2 pg (27.0-31.0); Mean Corpuscular Volume 87.1 fL (78.0-98.0); Mean Platelet Volume 9.8 fL (7.4-10.4); Platelet Count 172 thou/uL (130-400); Red Blood Cell (RBC) Count 4.43 mill/uL (4.20-5.40); White Blood Cell (WBC) Count 8.7 thou/uL (4.8-10.8)
[2018-05-18 07:36] LABS: Anion Gap 13 mmol/L (10-20); BUN (Urea Nitrogen) 21 mg/dL (9.8-20.1); Calc. Creatinine Clearance 45 mL/min (70-130); Carbon Dioxide 23 mmol/L (23-31); Chloride 108 mmol/L (98-107); Estimated GFR-MDRD 44; Glucose 101 mg/dL (83-110); Potassium 4.2 mmol/L (3.5-5.1); Sodium 140 mmol/L (136-145)
[2018-05-18 07:55] VITALS: TEMP 98.5
[2018-05-18] MEDS: Cefdinir 300 MG CAP PO SCH (08:22)
[2018-05-18] MEDS: Calcium Carbonate + Vit D 1 TAB PO SCH (08:22)
[2018-05-18] MEDS: Dronedarone HCl 400 MG TAB PO SCH (08:23)
[2018-05-18] MEDS: Famotidine 20 MG TAB PO SCH (08:23)
[2018-05-18] MEDS: Rosuvastatin 20 MG TAB PO SCH (08:25)
[2018-05-18] MEDS: Lubiprostone 24 MCG CAP PO SCH (08:26)
[2018-05-18] MEDS: Meclizine HCl 12.5 MG TAB PO SCH (08:27)
[2018-05-18] MEDS: Amlodipine 5 MG TAB PO SCH ×2 (08:28→11:29)
[2018-05-18] MEDS: Insulin Glargine 10 UNITS in Pre-Filled Syringe 1 EACH SC SCH (08:28)
[2018-05-18] MEDS: Famotidine/PF 20 mg/2ml Vial SLOW IVP SCH (08:28)
[2018-05-18 08:30] LABS: Band 1 % (5-11); Eosinophils 5 % (0-10); Lymphocytes 44 % (21-51); MDiff Complete? YES; Monocytes 11 % (0-10); Neutrophil 38 % (42-75); RBC Morphology Normal; Reactive Lymphocytes 1 % (0-10)
[2018-05-18 11:30] VITALS: BP 135/70
--- NOTE | 2018-05-18 12:17 | DIS ---
DATE OF ADMISSION: 05/13/2018 DATE OF DISCHARGE: 05/18/2018 PRIMARY CARE PROVIDER: Dr. Tonny Echeverria. DISCHARGE DIAGNOSES: 1. Community-acquired bacterial pneumonia. 2. Vertigo. 3. Physical deconditioning. 4. Acute on chronic stage 3 renal failure. 5. Hyperkalemia. CONDITION OF THE PATIENT ON THE DAY OF DISCHARGE: Stable. I assessed Ms. Barreto on the day of discharge. She denies any chest pain or shortness of breath. She reports occasional cough. She is ambulating in the hallways without any problem. She denies any dizziness. Vital signs are stable. S1 and S2 are heard, regular. Lungs are clear to auscultation bilaterally. HOSPITAL COURSE: Ms. Barreto is a pleasant 82-year-old lady, who was admitted to [facility] on April 2018, for pneumonia. Please refer to Dr. Khan's history and physical note dated May 14, 2018, for further details. She also had hyperkalemia at the time of admission. She also had acute on chronic stage 3 kidney disease. She was seen by Nephrology Service, Dr. Grajeda. Losartan was on hold and she improved in terms of renal function. Losartan is being resumed at the time of discharge. She was treated with intravenous antibiotics for pneumonia and improved clinically. Towards the end of her hospital stay, she reported feeling weak. She also reported feeling vertiginous on May 17. This resolved with a trial of meclizine. Weakness resolved as well, and she is being discharged home in a stable condition. DISCHARGE MEDICATIONS: 1. Amlodipine 5 mg daily. 2. Aspirin 81 mg daily. 3. Calcium carbonate/vitamin D3 one tablet daily. 4. Multaq 400 mg two times a day. 5. Levemir insulin 10 units two times a day. 6. Victoza 1.8 mg subcutaneously daily. 7. Losartan 50 mg daily. 8. Amitiza 24 mg daily. 9. Metoprolol 100 mg daily. 10. Nasonex 1 spray to each naris daily. 11. Crestor 20 mg daily. 12. Zoloft 12.5 mg daily. 13. Omnicef 300 mg two times a day for 5 more days. 14. Tramadol 100 mg four times a day as needed. 15. ProAir HFA 2 puffs every 6 hours as needed. 16. Meclizine 12.5 mg two times a day as needed. She has been advised not to drive or operate heavy machinery while using meclizine. She has also been advised to stop smoking. On the day of discharge, she has sodium of 140, potassium 4.2, creatinine 1.40, white count 8700, hemoglobin 12.5, and platelet count of 172,000. Many thanks for allowing me to participate in your patient's care. Please feel free to contact me with any questions or concerns. DISCHARGE DESTINATION: Home. TOTAL AMOUNT OF TIME SPENT COORDINATING THIS DISCHARGE: 32 minutes. Job ID: [id number]
== END 2018-05-18 14:05 | disposition home or self-care (01) | DRG 193 ==
LOC: ERS 19:59 → T4-A 22:50
PROVIDERS: ADMIT Internal Medicine; ATTEND Internal Medicine
DX: J15.9 Unspecified bacterial pneumonia (principal); J96.01 Acute respiratory failure with hypoxia; E87.2 Acidosis; N17.9 Acute kidney failure, unspecified; F17.210 Nicotine dependence, cigarettes, uncomplicated; J45.909 Unspecified asthma, uncomplicated; E11.65 Type 2 diabetes mellitus with hyperglycemia; E11.22 Type 2 diabetes mellitus with diabetic chronic kidney disease; I12.9 Hypertensive chronic kidney disease with stage 1 through stage 4 chronic kidney disease, or unspecified chronic kidney disease; E86.0 Dehydration; N18.3 Chronic kidney disease, stage 3 (moderate); E87.5 Hyperkalemia; E11.21 Type 2 diabetes mellitus with diabetic nephropathy; E78.5 Hyperlipidemia, unspecified; R42 Dizziness and giddiness; Z79.82 Long term (current) use of aspirin; Z79.4 Long term (current) use of insulin
CPT/HCPCS: 36415; 36416; 71045; 71046; 80048; 80053; 80069; 83605; 83880; 84484; 85007; 85025; 85027; 87040; 87804; 90471; 90662; 93005; 94640; 96374; 96375; G0008; J0456; J0696; J1650; J1940; J2930; J7050; J7506; J7620; S0028

== ENCOUNTER 2018-10-11 21:58 | Emergency (ER) | payer MEDICARE, MEDICAID ==
--- NOTE | 2018-10-11 22:48 | RAD ---
PORTABLE CHEST: Date: 10/11/18 HISTORY: Dyspnea. COMPARISON: 05/13/18. FINDINGS/IMPRESSION: Borderline cardiomegaly. Mild vascular engorgement. Hazy infiltrates bilaterally may represent edema or inflammatory infiltrates. POS: [facility]
[2018-10-11 23:31] LABS: #Basophils 0.1 thou/uL (0.0-0.2); #Eosinphils 0.2 thou/uL (0.0-0.7); #Lymphocytes 3.1 thou/uL (1.20-3.40); #Monocytes 0.8 thou/uL (0.11-0.59); #Neutrophils 2.2 thou/uL (1.40-6.50); %Basophils 0.8 % (0.0-1.0); %Eosinophils 2.9 % (0.0-10.0); %Lymphocytes 49.4 % (21.0-51.0); %Monocytes 12.1 % (0.0-10.0); %Neutrophils 34.8 % (42.0-75.0); Hemoglobin 13.3 g/dL (12.0-16.0); Mean Corpuscular HGB CONC 31.5 g/dL (32.0-36.0); Mean Corpuscular Hemoglobin 28.5 pg (27.0-31.0); Mean Corpuscular Volume 90.4 fL (78.0-98.0); Mean Platelet Volume 10.7 fL (7.4-10.4); Platelet Count 140 thou/uL (130-400); RBC Distribution Width 12.9 % (11.5-14.5); RBC Morphology Normal; Red Blood Cell (RBC) Count 4.68 mill/uL (4.20-5.40); White Blood Cell (WBC) Count 6.3 thou/uL (4.8-10.8)
[2018-10-11 23:36] LABS: ALT (SGPT) 11 U/L (8-55); AST (SGOT) 13 U/L (5-34); Albumin 3.8 g/dL (3.4-4.8); Alkaline Phosphatase 74 U/L (40-150); Anion Gap 15 mmol/L (10-20); BUN (Urea Nitrogen) 39 mg/dL (9.8-20.1); Bilirubin, Total 0.2 mg/dL (0.2-1.2); Calc. Creatinine Clearance 0 mL/min (70-130); Carbon Dioxide 22 mmol/L (23-31); Chloride 106 mmol/L (98-107); Estimated GFR-MDRD 30; Globulin 3.1 g/dL (2.4-3.5); Glucose 207 mg/dL (83-110); Potassium 3.7 mmol/L (3.5-5.1); Protein, Total 6.9 g/dL (6.0-8.3); Sodium 139 mmol/L (136-145)
[2018-10-12] MEDS ORDERED: methylPREDNISolone Sod Succ/PF 125 MG/2 ML VIAL ONE (00:10)
[2018-10-12] MEDS ORDERED: cefTRIAXone\\ROCEPHIN 2 GM VIAL ONE (00:10)
[2018-10-12] MEDS ORDERED: Doxycycline 100 MG CAP PO SCH (00:30)
== END 2018-10-12 00:05 | disposition home or self-care (01) ==
LOC: ERS 21:58
DX: J18.9 Pneumonia, unspecified organism (principal); E11.9 Type 2 diabetes mellitus without complications; I10 Essential (primary) hypertension; Z87.891 Personal history of nicotine dependence; Z79.4 Long term (current) use of insulin; Z79.82 Long term (current) use of aspirin; Z79.899 Other long term (current) drug therapy
CPT/HCPCS: 36415; 71045; 80053; 83880; 84484; 85025; 93005; 94640; 94760; 96365; 96375; J0696; J2930; J7620

== ENCOUNTER 2019-02-23 08:59 | Outpatient (CLI) | payer MEDICARE, MEDICAID ==
--- NOTE | 2019-02-23 13:48 | MMO ---
Bilateral MAMMO Bilat Screen [facility]. CLINICAL HISTORY: Patient is 83 years old and is seen for screening. The patient has no family history of breast cancer. The patient has no personal history of cancer. The patient has a history of left Excisional Biopsy in 1998 - BENIGN. VIEWS: The views performed were: bilateral craniocaudal with tomosynthesis and bilateral mediolateral oblique with tomosynthesis. FILMS COMPARED: The present examination has been compared to prior imaging studies performed at [facility] on 01/25/2015, 01/31/2016, 02/16/2017 and 02/18/2018. This study has been interpreted with the assistance of computer-aided detection. MAMMOGRAM FINDINGS: The breasts are heterogeneously dense, which could obscure a lesion on mammography. Benign calcifications are noted bilaterally. There are no suspicious masses, suspicious calcifications, or new areas of architectural distortion. IMPRESSION: THERE IS NO MAMMOGRAPHIC EVIDENCE OF MALIGNANCY. A ROUTINE FOLLOW-UP MAMMOGRAM IN 1 YEAR IS RECOMMENDED. THE RESULTS OF THIS EXAM WERE SENT TO THE PATIENT. ACR BI-RADS Category 2 - Benign finding MAMMOGRAPHY NOTE: 1. A negative mammogram report should not delay a biopsy if a dominant of clinically suspicious mass is present. 2. Approximately 10% to 15% of breast cancers are not detected by mammography. 3. Adenosis and dense breasts may obscure an underlying neoplasm. Reported by: MEHRAN ROCA MD Electonically Signed: [id number]
== END 2019-02-23 09:00 | disposition home or self-care (01) ==
LOC: BICMAMMO 08:59
PROVIDERS: ATTEND Family Medicine
DX: Z12.31 Encounter for screening mammogram for malignant neoplasm of breast (principal); Z91.89 Other specified personal risk factors, not elsewhere classified
CPT/HCPCS: 77063; 77067

== ENCOUNTER 2019-07-18 12:12 | Outpatient (CLI) | payer MEDICARE, MEDICAID ==
--- NOTE | 2019-07-18 13:34 | RAD ---
PA AND LATERAL VIEWS OF THE CHEST: 07/18/19 HISTORY: Dyspnea on exertion. COMPARISON: 10/11/18 and 05/11/18. FINDINGS/IMPRESSION: There is borderline cardiomegaly. The aorta is tortuous. The lungs are well expanded with mild promin ence of the pulmonary vascularity. No lobar consolidation, pneumothoraces, tomasz pulmonary edema, or pleural effusions are seen. POS: [facility]
== END 2019-07-18 12:13 | disposition home or self-care (01) ==
LOC: BICRAD 12:12
PROVIDERS: ATTEND Physician Assistant Medical
DX: R06.09 Other forms of dyspnea (principal); R91.8 Other nonspecific abnormal finding of lung field
CPT/HCPCS: 71046

== ENCOUNTER 2019-07-24 10:18 | Outpatient (CLI) | payer MEDICARE, MEDICAID ==
--- NOTE | 2019-07-24 12:55 | CT ---
CT OF THE ABDOMEN AND PELVIS WITH IV CONTRAST INDICATION: Abnormal weight loss and chronic constipation COMPARISON: CT the abdomen and pelvis dated 02/15/2011 FINDINGS: ABDOMEN: Lung bases: There is bibasilar subsegmental atelectasis. Liver: No focal hepatic lesion is evident. Gallbladder: Normal appearing. Pancreas: Normal. Adrenal glands: Normal. Spleen: Normal. Kidneys and ureters: There is slight prominence of the right renal pelvic and calyceal system but sta ble with normal-appearing ureter suspicious for mild chronic right UPJ obstruction. No left-sided nephrolithiasis evident. No definite solid renal lesion is noted. Vasculature: There are severe vascular calcifications seen involving the visualized vasculature. Ther e is prominent atherosclerotic irregularity involving the proximal SMA and proximal celiac arteries. There is prominent atherosclerotic irregularity involving both main renal arteries. Lymph nodes:No lymphadenopathy. Free fluid in abdomen:No free fluid is evident. PELVIS: Small and large bowel: There is no overt evidence of bowel wall thickening. There is a mild amount re tained stool within the colon. Appendix:Normal Bladder: Normal. Rectal and perirectal soft tissues:Normal. Reproductive structures: Calcified fibroids within the uterus. Free fluid in pelvis: No free fluid is evident. Lymphadenopathy pelvis: No lymphadenopathy is evident. Osseous structures: There is diffuse osteopenia. No acute fracture or subluxation demonstrated. Ther e is scattered degenerative and osteoarthritic changes. Soft tissues:There are areas of reticulation involving the lower anterior abdominal wall fat likely r elated to injection sites. IMPRESSION: 1. Severe vascular calcification of the abdominal pelvic vasculature with prominent atherosclerotic i rregularity involving the celiac and SMA arteries. There is also prominent atherosclerotic irregularity involving both main renal arteries. There is no overt evidence to suggest presence of co lonic or small bowel ischemia. Chronic ischemia cannot be entirely excluded. Would recommend consideration for a CTA of the abdomen and pelvis to evaluate extent of the atherosclerotic disease i nvolving the mesenteric vasculature. 2. Stable mild right UPJ obstruction. 3. Fibroid uterus
[2019-07-24] MEDS ORDERED: Iopamidol 370 76% 100 ML VIAL ONE (14:51)
== END 2019-07-24 10:19 | disposition home or self-care (01) ==
LOC: CT 10:18
PROVIDERS: ATTEND Physician Assistant Medical
DX: K59.09 Other constipation (principal); R63.4 Abnormal weight loss; R63.0 Anorexia; N13.5 Crossing vessel and stricture of ureter without hydronephrosis; D25.9 Leiomyoma of uterus, unspecified; K55.1 Chronic vascular disorders of intestine; I70.8 Atherosclerosis of other arteries; I70.1 Atherosclerosis of renal artery
CPT/HCPCS: 74177; 82565; Q9967

== ENCOUNTER 2020-02-26 11:14 | Outpatient (CLI) | payer MEDICARE, OTHER, MEDICAID ==
--- NOTE | 2020-02-26 12:01 | MMO ---
Bilateral MAMMO Bilat Screen [facility]. CLINICAL HISTORY: Patient is 84 years old and is seen for screening. The patient has no family history of breast cancer. The patient has no personal history of cancer. The patient has a history of left Excisional Biopsy in 1998 - BENIGN. VIEWS: The views performed were: bilateral craniocaudal with tomosynthesis and bilateral mediolateral oblique with tomosynthesis. FILMS COMPARED: The present examination has been compared to prior imaging studies performed at [facility] on 01/31/2016, 02/16/2017, 02/18/2018 and 02/23/2019. This study has been interpreted with the assistance of computer-aided detection. MAMMOGRAM FINDINGS: The breasts are heterogeneously dense, which could obscure a lesion on mammography. There are benign appearing and vascular calcifications seen in both breasts. There are no suspicious masses, suspicious calcifications, or new areas of architectural distortion. IMPRESSION: THERE IS NO MAMMOGRAPHIC EVIDENCE OF MALIGNANCY. A ROUTINE FOLLOW-UP MAMMOGRAM IN 1 YEAR IS RECOMMENDED. THE RESULTS OF THIS EXAM WERE SENT TO THE PATIENT. ACR BI-RADS Category 2 - Benign finding MAMMOGRAPHY NOTE: 1. A negative mammogram report should not delay a biopsy if a dominant of clinically suspicious mass is present. 2. Approximately 10% to 15% of breast cancers are not detected by mammography. 3. Adenosis and dense breasts may obscure an underlying neoplasm. Reported by: MATT GUAJARDO MD Electonically Signed: [id number]
== END 2020-02-26 11:15 | disposition home or self-care (01) ==
LOC: BICMAMMO 11:14
PROVIDERS: ATTEND Family Medicine
DX: Z12.31 Encounter for screening mammogram for malignant neoplasm of breast (principal); Z91.89 Other specified personal risk factors, not elsewhere classified
CPT/HCPCS: 77063; 77067

== ENCOUNTER 2020-11-23 19:30 | Emergency (ER) | payer MEDICARE, MEDICAID ==
[2020-11-23 20:53] LABS: Bilirubin Negative (Negative); Blood, Urine Negative (Negative); Clarity Clear (Clear); Glucose, Urine (Dipstick) Normal (Negative); Ketone, Urine Negative (Negative); Leukocyte Negative Leu/uL (Negative); Nitrite Negative (Negative); Protein, Urine (Dipstick) Negative (Neg-Trace); Specific Gravity, Urine 1.017 (1.002-1.036); Urobilinogen Normal mg/dL (Less than 2)
[2020-11-23 21:28] LABS: #Basophils 0.1 thou/uL (0.0-0.2); #Eosinphils 0.2 thou/uL (0.0-0.7); #Lymphocytes 3.1 thou/uL (1.20-3.40); #Monocytes 0.7 thou/uL (0.11-0.59); #Neutrophils 3.2 thou/uL (1.40-6.50); %Basophils 0.8 % (0.0-1.0); %Eosinophils 3.1 % (0.0-10.0); %Lymphocytes 42.3 % (21.0-51.0); %Monocytes 9.4 % (0.0-10.0); %Neutrophils 44.4 % (42.0-75.0); Hemoglobin 14.5 g/dL (12.0-16.0); Mean Corpuscular Hemoglobin 27.9 pg (27.0-31.0); Mean Platelet Volume 10.9 fL (7.4-10.4); Platelet Count 161 thou/uL (130-400); RBC Distribution Width 13.4 % (11.5-14.5); White Blood Cell (WBC) Count 7.2 thou/uL (4.8-10.8)
[2020-11-23] MEDS ORDERED: Ketorolac Tromethamine 30 MG/ML VIAL ONE (22:23)
[2020-11-23 22:38] LABS: Albumin 3.8 g/dL (3.4-4.8)
[2020-11-23 22:39] LABS: Chloride 111 mmol/L (98-107)
[2020-11-23 22:40] LABS: Calcium 9.3 mg/dL (7.8-10.44); Potassium 4.4 mmol/L (3.5-5.1); Sodium 140 mmol/L (136-145)
[2020-11-23 22:41] LABS: Globulin 2.9 g/dL (2.4-3.5); Glucose 85 mg/dL (83-110); Protein, Total 6.7 g/dL (5.8-8.1)
[2020-11-23 22:42] LABS: Anion Gap 12 mmol/L (10-20); Carbon Dioxide 21 mmol/L (23-31)
[2020-11-23 22:43] LABS: Bilirubin, Total 0.2 mg/dL (0.2-1.2)
[2020-11-23 22:44] LABS: Alkaline Phosphatase 73 U/L (40-110); Calc. Creatinine Clearance 0 mL/min (70-130)
[2020-11-23 22:45] LABS: BUN (Urea Nitrogen) 29 mg/dL (9.8-20.1)
[2020-11-23 22:46] LABS: AST (SGOT) 21 U/L (5-34)
[2020-11-23 22:47] LABS: ALT (SGPT) 15 U/L (8-55); Lipase 47 U/L (8-78)
== END 2020-11-23 22:55 | disposition home or self-care (01) ==
LOC: ERS 19:30
DX: R10.11 Right upper quadrant pain (principal); E11.9 Type 2 diabetes mellitus without complications; I10 Essential (primary) hypertension; Z87.891 Personal history of nicotine dependence
CPT/HCPCS: 36415; 71045; 76705; 80053; 81003; 83690; 83880; 84484; 85025; 93005; 96374; J1885

== ENCOUNTER 2021-03-06 08:32 | Outpatient (CLI) | payer MEDICARE, MEDICAID | END 2021-03-06 08:33 | disposition home or self-care (01) | LOC: BICMAMMO 08:32 | PROVIDERS: ATTEND Family Medicine | DX: Z12.31 Encounter for screening mammogram for malignant neoplasm of breast (principal); Z91.89 Other specified personal risk factors, not elsewhere classified | CPT/HCPCS: 77063; 77067 ==

== ENCOUNTER 2022-03-09 08:52 | Outpatient (CLI) | payer MEDICARE, OTHER | END 2022-03-09 08:53 | disposition home or self-care (01) | LOC: BICMAMMO 08:52 | PROVIDERS: ATTEND Family Medicine | DX: Z12.31 Encounter for screening mammogram for malignant neoplasm of breast (principal); Z91.89 Other specified personal risk factors, not elsewhere classified | CPT/HCPCS: 77063; 77067 ==

== ENCOUNTER 2022-03-26 06:39 | Day surgery (SDC) | payer MEDICARE, MEDICAID ==
[2022-03-25 10:33] VITALS: BMI 34.9
[2022-03-26] MEDS ORDERED: Lidocaine 1% (PF) 30 ML VIAL ONE (06:46)
[2022-03-26] MEDS ORDERED: Heparin 10,000 UNITS/ 10 ML VIAL ONE (06:46)
[2022-03-26] MEDS ORDERED: Fentanyl 100 MCG/2 ML VIAL ONE (07:33)
[2022-03-26] MEDS ORDERED: Midazolam HCl 2 mg/2 ml Vial ONE (07:34)
[2022-03-26 07:37] LABS: #Eosinphils 0.2 thou/uL (0.0-0.7); #Lymphocytes 2.8 thou/uL (1.20-3.40); #Monocytes 0.9 thou/uL (0.11-0.59); #Neutrophils 4.9 thou/uL (1.40-6.50); %Basophils 0.3 % (0.0-1.0); %Eosinophils 1.7 % (0.0-10.0); %Lymphocytes 31.6 % (21.0-51.0); %Monocytes 9.8 % (0.0-10.0); %Neutrophils 56.6 % (42.0-75.0); Hemoglobin 14.5 g/dL (12.0-16.0); Mean Corpuscular HGB CONC 31.5 g/dL (32.0-36.0); Mean Corpuscular Hemoglobin 28.6 pg (27.0-31.0); Mean Corpuscular Volume 90.9 fl (78.0-98.0); Mean Platelet Volume 10.9 fL (7.4-10.4); Platelet Count 162 10x3/uL (130-400); RBC Distribution Width 14.6 % (11.5-14.5); Red Blood Cell (RBC) Count 5.05 mill/uL (4.20-5.40); White Blood Cell (WBC) Count 8.7 10x3/uL (4.8-10.8)
[2022-03-26 07:49] LABS: Anion Gap 16 mmol/L (10-20); BUN (Urea Nitrogen) 33 mg/dL (9.8-20.1); Calc. Creatinine Clearance 37 mL/min (70-130); Calcium 10.1 mg/dL (7.8-10.44); Carbon Dioxide 22 mmol/L (23-31); Chloride 110 mmol/L (98-107); Estimated GFR 29; Glucose 140 mg/dL (83-110); Potassium 5.3 mmol/L (3.5-5.1); Sodium 143 mmol/L (136-145)
[2022-03-26] MEDS ORDERED: Protamine Sulfate 50 MG/5 ML VIAL ONE (09:17)
[2022-03-26] MEDS ORDERED: hydrALAZINE 20 MG/ML VIAL ONE (10:03)
[2022-03-26] MEDS ORDERED: Atropine Sulfate 1 mg/10 ml Syringe ONE (10:04)
[2022-03-26] MEDS ORDERED: Clopidogrel Bisulfate 75 MG TAB ONE (10:30)
== END 2022-03-26 16:36 | disposition home or self-care (01) ==
LOC: SDC 06:39
PROVIDERS: ATTEND Thoracic Surgery (Cardiothoracic Vascular Surgery)
PROC: 047J3DZ Dilation of Left External Iliac Artery with Intraluminal Device, Percutaneous Approach (ICD-10-PCS; principal; 2022-03-26)
DX: E11.51 Type 2 diabetes mellitus with diabetic peripheral angiopathy without gangrene (principal); I70.222 Atherosclerosis of native arteries of extremities with rest pain, left leg; I70.211 Atherosclerosis of native arteries of extremities with intermittent claudication, right leg; I10 Essential (primary) hypertension; E78.5 Hyperlipidemia, unspecified; J44.9 Chronic obstructive pulmonary disease, unspecified; F17.210 Nicotine dependence, cigarettes, uncomplicated; I48.91 Unspecified atrial fibrillation; K21.9 Gastro-esophageal reflux disease without esophagitis; Z79.4 Long term (current) use of insulin; Z79.82 Long term (current) use of aspirin; Z79.85 Long-term (current) use of injectable non-insulin antidiabetic drugs; Z79.899 Other long term (current) drug therapy
CPT/HCPCS: 80048; 85025; 85347 ×2; C1725 ×3; C1769 ×3; C1894; 36415; 37221; 75710; 99152; 99153; J0360; J0461; J1644; J2001; J2250; J2720; J3010

== ENCOUNTER 2023-02-03 08:08 | Outpatient (CLI) | payer MEDICARE, MEDICAID | END 2023-02-03 08:09 | disposition home or self-care (01) | LOC: SCSMRI 08:08 | PROVIDERS: ATTEND Specialist | DX: M51.16 Intervertebral disc disorders with radiculopathy, lumbar region (principal); M48.062 Spinal stenosis, lumbar region with neurogenic claudication; M47.26 Other spondylosis with radiculopathy, lumbar region; M43.16 Spondylolisthesis, lumbar region; M51.37 Other intervertebral disc degeneration, lumbosacral region; M47.817 Spondylosis without myelopathy or radiculopathy, lumbosacral region; M48.07 Spinal stenosis, lumbosacral region; M24.28 Disorder of ligament, vertebrae | CPT/HCPCS: 72148 ==

== ENCOUNTER 2023-05-11 08:33 | Outpatient (CLI) | payer MEDICARE, MEDICAID | END 2023-05-11 08:34 | disposition home or self-care (01) | LOC: BICMAMMO 08:33 | PROVIDERS: ATTEND Family Medicine | DX: Z12.31 Encounter for screening mammogram for malignant neoplasm of breast (principal); Z91.89 Other specified personal risk factors, not elsewhere classified | CPT/HCPCS: 77063; 77067 ==

== ENCOUNTER → 2023-10-05 | Day surgery (SDC) | payer MEDICARE, MEDICAID ==
[~2023-10-05] MED LIST: Lidocaine 1% w/Epinephrine 1:100K 20 ML VIAL ONE; Midazolam HCl 2 mg/2 ml Vial ONE; Sodium Bicarbonate 2.5 MEQ/5 ML SDV ONE; fentaNYL 50 mcg/mL 1 mL Vial ONE
[2023-10-05 08:18] LABS: #Basophils 0.05 10x3/uL (0.0-0.2); %Basophils 0.7 % (0.0-1.0); %Eosinophils 2.4 % (0.0-10.0); %Lymphocytes 29.1 % (21.0-51.0); %Neutrophils 53.5 % (42.0-75.0); Hematocrit 41.8 % (36.0-47.0); Hemoglobin 12.5 g/dL (12.0-16.0); Mean Corpuscular HGB CONC 29.9 g/dL (32.0-36.0); Mean Corpuscular Hemoglobin 27.6 pg (27.0-31.0); Mean Corpuscular Volume 92.3 fL (78.0-98.0); Platelet Count 213 10x3/uL (130-400); RBC Distribution Width 16.2 % (11.5-14.5); Red Blood Cell (RBC) Count 4.53 mill/uL (4.20-5.40)
[2023-10-05 08:31] LABS: INR-International Normal Ratio 1.1; Prothrombin Time 13.8 sec (12.0-14.7)
[2023-10-05 09:26] LABS: PTT 22.6 sec (22.9-36.1)
== END ==
LOC: CT 07:32
PROVIDERS: ATTEND Internal Medicine
PROC: 0BBC3ZX Excision of Right Upper Lung Lobe, Percutaneous Approach, Diagnostic (ICD-10-PCS; principal; 2023-10-05)
DX: R91.8 Other nonspecific abnormal finding of lung field (principal); C34.11 Malignant neoplasm of upper lobe, right bronchus or lung; R59.0 Localized enlarged lymph nodes; I10 Essential (primary) hypertension; E11.9 Type 2 diabetes mellitus without complications; Z87.891 Personal history of nicotine dependence; Z88.8 Allergy status to other drugs, medicaments and biological substances; Z79.4 Long term (current) use of insulin; Z79.899 Other long term (current) drug therapy
CPT/HCPCS: 32408; 71045; 71046; 77012; 85025; 85610; 85730; 88333; 88334; J3010; 88305; 88341; 88342; 99152; 99153; J2250

== ENCOUNTER 2023-10-29 11:27 | Outpatient (CLI) | payer MEDICARE, MEDICAID | END 2023-10-29 11:28 | disposition home or self-care (01) | LOC: SCSMRI 11:27 | PROVIDERS: ATTEND Internal Medicine Hematology & Oncology | DX: C34.90 Malignant neoplasm of unspecified part of unspecified bronchus or lung (principal); R22.0 Localized swelling, mass and lump, head; G93.6 Cerebral edema | CPT/HCPCS: 70551 ==

== ENCOUNTER 2023-11-01 09:08 | Day surgery (SDC) | payer MEDICARE, MEDICAID ==
[2023-11-01 09:32] LABS: #Basophils 0.07 10x3/uL (0.0-0.2); %Basophils 0.8 % (0.0-1.0); %Eosinophils 0.8 % (0.0-10.0); %Lymphocytes 21.2 % (21.0-51.0); %Monocytes 14.9 % (0.0-10.0); Hematocrit 42.8 % (36.0-47.0); Hemoglobin 12.9 g/dL (12.0-16.0); Mean Corpuscular HGB CONC 30.1 g/dL (32.0-36.0); Mean Corpuscular Hemoglobin 27.4 pg (27.0-31.0); Mean Corpuscular Volume 90.9 fL (78.0-98.0); Mean Platelet Volume 11.8 fL (7.4-10.4); Platelet Count 206 10x3/uL (130-400); RBC Distribution Width 15.3 % (11.5-14.5); Red Blood Cell (RBC) Count 4.71 mill/uL (4.20-5.40)
[2023-11-01 09:46] LABS: INR-International Normal Ratio 1.1
[2023-11-01 09:52] LABS: PTT 21.4 sec (22.9-36.1)
[2023-11-01] MEDS ORDERED: Sodium Bicarbonate 2.5 MEQ/5 ML SDV ONE (10:05)
[2023-11-01] MEDS ORDERED: Lidocaine 1% PF 5 ML VIAL ONE (10:05)
[2023-11-01] MEDS ORDERED: Sodium Chloride 0.9% 500 ML ONE (10:43)
[2023-11-01] MEDS ORDERED: Lidocaine 1% w/Epinephrine 1:100K 20 ML VIAL ONE (11:48)
[2023-11-01] MEDS ORDERED: CEFAZOLIN 1 GM VIAL ONE (11:55)
[2023-11-01] MEDS ORDERED: CEFAZOLIN 2 GM VIAL ONE (11:56)
[2023-11-01] MEDS ORDERED: Midazolam HCl 2 mg/2 ml Vial ONE (12:08)
[2023-11-01] MEDS ORDERED: fentaNYL 50 mcg/mL 1 mL Vial ONE (12:08)
[2023-11-01] MEDS ORDERED: Metoprolol Tartrate 5 MG (5 mL) VIAL ONE ×2 (12:18→12:53)
== END 2023-11-01 16:00 | disposition home or self-care (01) ==
LOC: SPEC 09:08
PROVIDERS: ATTEND Internal Medicine Hematology & Oncology
PROC: 0JH63WZ Insertion of Totally Implantable Vascular Access Device into Chest Subcutaneous Tissue and Fascia, Percutaneous Approach (ICD-10-PCS; principal; 2023-11-01)
DX: C34.11 Malignant neoplasm of upper lobe, right bronchus or lung (principal)
CPT/HCPCS: 36561; 71045; 71046; 76937; 77001; 85025; 85610; 85730; C1788; J0690; J1642; J2250; J3010; J7030; 36415

== ENCOUNTER 2023-11-02 09:01 | Outpatient (CLI) | payer MEDICARE, MEDICAID | END 2023-11-02 09:02 | disposition home or self-care (01) | LOC: SCSMRI 09:01 | PROVIDERS: ATTEND Radiology Radiation Oncology | DX: C79.31 Secondary malignant neoplasm of brain (principal) | CPT/HCPCS: 70552; 70553 ==

== ENCOUNTER 2024-02-24 08:14 | Outpatient (CLI) | payer MEDICARE, MEDICAID | END 2024-02-24 08:15 | disposition home or self-care (01) | LOC: MRI 08:14 | PROVIDERS: ATTEND Radiology Radiation Oncology | DX: C79.31 Secondary malignant neoplasm of brain (principal); C34.11 Malignant neoplasm of upper lobe, right bronchus or lung; G93.89 Other specified disorders of brain; Z51.81 Encounter for therapeutic drug level monitoring; I73.9 Peripheral vascular disease, unspecified | CPT/HCPCS: 36415; 70551; 80048; 85025; 85610; 85730 ==

== ENCOUNTER 2024-04-30 12:49 | Emergency (ER) | payer MEDICARE, MEDICAID ==
[2024-04-30 14:11] LABS: #Basophils Less than 0.03 10x3/uL (0.0-0.2); %Basophils 0.5 % (0.0-1.0); %Eosinophils 1.8 % (0.0-10.0); %Monocytes 12.1 % (0.0-10.0); %Neutrophils 62.1 % (42.0-75.0); Hematocrit 37.9 % (36.0-47.0); Mean Corpuscular HGB CONC 31.7 g/dL (32.0-36.0); Mean Corpuscular Hemoglobin 30.1 pg (27.0-31.0); Platelet Count 58 10x3/uL (130-400); RBC Distribution Width 14.6 % (11.5-14.5); Red Blood Cell (RBC) Count 3.99 mill/uL (4.20-5.40)
[2024-04-30 14:22] LABS: ALT (SGPT) 9 U/L (8-55); AST (SGOT) 22 U/L (5-34); Albumin 3.7 g/dL (3.4-4.8); Alkaline Phosphatase 61 U/L (40-110); Anion Gap 17 mmol/L (10-20); BUN (Urea Nitrogen) 15 mg/dL (9.8-20.1); Bilirubin, Total 0.4 mg/dL (0.2-1.2); Calc. Creatinine Clearance 0 mL/min (70-130); Calcium 9.9 mg/dL (7.8-10.44); Carbon Dioxide 19 mmol/L (23-31); Chloride 109 mmol/L (98-107); Estimated GFR 30; Globulin 3.3 g/dL (2.4-3.5); Glucose 112 mg/dL (83-110); Potassium 4.6 mmol/L (3.5-5.1); Sodium 140 mmol/L (136-145)
[2024-04-30 14:30] LABS: Anisocytosis MARKED = >30 cells HPF (0-5); Burr Cells SLIGHT = 2-5 cells HPF (0-1); Macrocytosis MODERATE=16-30 cells HPF (0-5); Platelet Adequacy Comment Platelets Decreased; Polychromasia SLIGHT = 2-3 cells HPF (0-2); Schistocytes SLIGHT = 2-5 cells HPF (0-1)
[2024-04-30 16:06] LABS: Bacteria/HPF None Seen HPF (None Seen); Bilirubin Negative (Negative); Blood, Urine Negative (Negative); CAUTI Indications for Culture Alt mental st,lethar; Clarity Clear (Clear); Glucose, Urine (Dipstick) Normal (Negative); Ketone, Urine Negative (Negative); Leukocyte Negative Leu/uL (Negative); Nitrite Negative (Negative); Protein, Urine (Dipstick) 20 mg/dL (Neg-Trace); RBC/HPF 0-3 HPF (0-3); Squamous Epithelial 0-3 HPF (0-3); WBC/HPF 0-3 HPF (0-3)
[2024-04-30 16:08] LABS: Urine Culture Reflex No No
== END 2024-04-30 20:23 ==
LOC: ERS 12:49
DX: R63.0 Anorexia (principal); R63.4 Abnormal weight loss; I12.9 Hypertensive chronic kidney disease with stage 1 through stage 4 chronic kidney disease, or unspecified chronic kidney disease; E11.22 Type 2 diabetes mellitus with diabetic chronic kidney disease; N18.9 Chronic kidney disease, unspecified; J45.909 Unspecified asthma, uncomplicated; E78.00 Pure hypercholesterolemia, unspecified; Z79.51 Long term (current) use of inhaled steroids; Z79.84 Long term (current) use of oral hypoglycemic drugs; Z87.891 Personal history of nicotine dependence; Z79.899 Other long term (current) drug therapy
CPT/HCPCS: 36415; 36416; 80053; 81001; 85025; 99285